=== PATIENT | female | born 1985 | race Caucasian/White ===

== ENCOUNTER 2021-07-06 22:14 | Inpatient (IN) | payer MEDICAID, SELFPAY ==
[2021-07-06] VITALS (17 sets, daily range): BP systolic 106–155; BP diastolic 67–77; PULSE 74–88; RESP 13–25; TEMP 36.3; O2SAT 96–99
[2021-07-06] MEDS: INSULIN REGULAR IN 0.9 % NACL 100 UNIT/100 ML BAG IV (21:40)
--- NOTE | 2021-07-06 23:02 | W.PM.HP.N ---
Date of service: 07/06/21 Time of Service: 23:02 Assessment and Plan Assessment and plan (1) Diabetic ketoacidosis associated with type 1 diabetes mellitus: Status: Acute Assessment and plan: . DKA is largely resolved. Her bicarb is up to 20 ion gap is closing. She is written for some clear liquid she will continue on the D5 containing IV fluid and insulin infusion per the [place] protocol. Every hour blood checks via her. Dexcom. We will recheck electrolytes in the a.m.(5 1/2 hrs). We will give her clear liquids overnight. (2) Pyelonephritis: Status: Acute Assessment and plan: Unusual presentation for upper tract infection. Her urine is not growing out greater than 100,000 colonies only 10-100,000 colonies of E. coli. Her blood culture shows gram-negative rods on the Gram stain. She is afebrile and maintaining a good blood pressure as well as a good urine output. A repeat CT scan is warranted to check for the phlegmon formation in the upper poles of both kidneys. At this point she does not have a drainable area. Dr. Rodarte from urology at [facility] reviewed her films. She does not have a large postvoid residual. (3) Type 1 diabetes mellitus: Status: Acute Assessment and plan: She has been a type I diabetic since age 5. She is followed by endocrinology at [facility]. She is normally on an insulin pump. Insulin pump has been removed and she is getting IV insulin per [place] protocol, currently at 4 units/h. Continue to check her sugar hourly. History of Present Illness History of Present Illness Chief Complaint: DKA/sepsis Narrative: This is a 35-year-old female transferred from [facility] for treatment of diabetic ketoacidosis in the setting of sepsis with a urinary tract source. She presented to [facility] on 07/05/2021. She states she has been sick for about 4 days. She works as a preschool substitute teacher. She developed fever and chills and a headache with some lower back pain and abdominal cramping. She is type I diabetic she noted she could smell ketones moderate breath. Her glucose levels have been running in the 200-300 range. She called her multimedia designer at [facility] and they gave her instructions to increase her insulin. At [facility] she was started on an insulin infusion. Her urinalysis showed 5-10 white cells and 3-5 red cells but only had a few bacteria. There are many epithelial cells. There were 4+ ketones but negative glucose negative nitrate and negative leukocyte esterase. The culture grew out 10-100,000 colony-forming units of E. coli. The blood cultures showed gram-negative rods on Gram stain molecular testing showed it to be E. coli. She was treated empirically with Unasyn in the insulin infusion. Her anion gap appears to be closing, her most recent bicarb is 20, she is now on D5 normal saline with 20 mEq of potassium at 100 cc/h. She is overall clinically improved. [facility] has no ICU beds available and could not provide an insulin infusion showed transfer was made after discussion with Dr. Hays. Review of Systems Narrative: She generally feels well. She is not chest pain or shortness of breath. She has no abdominal pain. She has no current nausea. She vomited once about 24 hours ago after having some clear liquid. Her last bowel movement was earlier today. She is not having any diarrhea. She has some vague fact discomfort that is intermittent but does not have true CVA tenderness. She has not had fever or chills since admission. [facility] Active Problem List (Updated 07/06/21 @ 23:16 by Arsh Jackson MD) Diabetic ketoacidosis associated with type 1 diabetes mellitus (Acute) Pyelonephritis (Acute) Type 1 diabetes mellitus (Acute) Medical History (Updated 07/06/21 @ 23:16 by Arsh Jackson MD) Acne Anxiety Dehiscence of section wound, (~2009) Depression Hirsutism Irregular menses Lateral epicondylitis Retinopathy Surgical History (Updated 07/06/21 @ 23:16 by Arsh Jackson MD) Previous section x3 Social History (Updated 07/06/21 @ 23:17 by Arsh Jackson MD) Smoking/Tobacco Use Status: Former Tobacco Use tobacco type: cigarettes Quit Date: 08/03/17 Pack-years: 14 Smoking risk assessment performed?: Yes Alcohol Intake: current Alcohol Intake frequency: 0-2 drinks per day Household members: spouse and children Number of Children: 3 Meds Allergies and Home Medications Allergies Allergy/AdvReac Type Severity Reaction Status Date / Time acetaminophen [From Ultracet] AdvReac seizures Verified 07/06/21 23:26 tramadol [From Ultracet] AdvReac seizures Verified 07/06/21 23:26 Home Medications Medication Instructions Recorded Confirmed Type albuterol sulfate [ProAir HFA] INHALATION 07/06/21 History blood-glucose meter,continuous 07/06/21 07/06/21 History [Dexcom G[employer]] gabapentin 300 mg PO TID 07/06/21 07/06/21 History insulin aspart U-100 [Novolog 07/06/21 History U-100 Insulin aspart] insulin glargine [Lantus U-100 SUBCUT 07/06/21 History Insulin] lidocaine [Lidoderm] 1 patch TOPICAL DAILY 07/06/21 07/06/21 History spironolactone 07/06/21 History tretinoin applic TOPICAL 07/06/21 History Exam Narrative Exam Narrative: On exam she is pleasant and alert in no apparent distress. She is fully cooperative and coherent. She has no respiratory difficulty or labored breathing. Her lung exam is completely clear on the right and left. Heart sounds are clear and no murmur is detected. Exam of the costovertebral area reveals no tenderness to percussion on the right or the left. She moves freely without evidence of discomfort. The abdominal exam is overall soft and no tenderness elicited to palpation in all 4 quadrants. No masses are appreciated. A postvoid residual done at bedside showed essentially 0 residual urine after 350 cc voids. The lower extremities show good perfusion and no evidence of edema. She has no obvious skin lesions. Results Imaging Chest x-ray: report reviewed (Chest x-ray from our [facility] showed no abnormality) CT scan - pelvis: report reviewed ([facility] showed a distended bladder and bilateral phlegmon in the upper poles of both kidneys. There were no abscess or drainable areas.) Labs Labs: Labs from [facility] at about 5:30 PM shows sodium 130 potassium 3.9 chloride 99 bicarb 28 BUN 11 creatinine 0.9 blood sugar 175 ketones 4.9 magnesium 1.3 but has since been corrected, urinalysis showed 5-10 white cells 3-5 red cells few bacteria and many epithelial cells 4+ ketones negative glucose nitrates negative leukocyte esterase negative; white blood cell count 20.9 thousand hemoglobin 14.3 hematocrit 42.7 platelets 2 98,000 with 92 segs no bands 2 lymphs; hemoglobin A1c is 7.5%; venous blood gases show pH 7.34 Last Vital Signs Temp 36.3 C L 07/06/21 21:51 Pulse 79 07/06/21 22:31 Resp 13 07/06/21 22:40 BP 106/67 07/06/21 22:31 Pulse Ox 98 07/06/21 22:40 PAWSS Pt Consumed Any Amount of Alcohol Within the Last 30 days OR had positive JESSE Upon Admission: No
[2021-07-06] MEDS: AMPICILLIN/SULBACTAM 3 GM in Normal Saline 100 ML IVPB (23:44)
[2021-07-06] MEDS: POTASSIUM CHLORIDE/D5-0.9%NACL 1,000 ML 100 MEQ IV (23:45)
[2021-07-07] VITALS (46 sets, daily range): BP systolic 95–124; BP diastolic 62–85; PULSE 69–102; RESP 11–27; TEMP 36–37.9; O2SAT 93–100
[2021-07-07] MEDS: Normal Saline Flush 10 ML SYR ×2 (00:12→08:27)
[2021-07-07 00:53] LABS: Anion Gap 9.8 mmol/L (3-11); BUN 11 mg/dL (7-18); CO2 21.2 mmol/L (21.0-32.0); CREATININE 0.9 mg/dL (0.55-1.02); Calcium 7.8 mg/dL (8.5-10.1); Chloride 102 mmol/L (98-107); Glucose 190 mg/dL (74-106); Potassium 3.4 mmol/L (3.5-5.1); Sodium 133 mmol/L (136-145)
[2021-07-07] MEDS: AMPICILLIN/SULBACTAM 3 GM in Normal Saline 100 ML IVPB (05:42)
[2021-07-07 05:44] LABS: Abs Immature Grans 0.12 10^3/uL (0.0-0.06); Absolute Eosinophil Count 0.03 10^3/uL (0.0-0.7); Absolute Lymphocyte Count 0.66 10^3/uL (1.2-3.4); Absolute Neutrophil Count 9.38 10^3/uL (1.2-6.7); Basophils % 0.3; Eosinophils % 0.3; HCT 33.7 % (36.0-46.0); HGB 11.3 g/dL (11.2-15.7); Lymphocytes % 5.8; MCH 30.1 pg (27.0-33.0); MCHC 33.5 % (32.0-36.0); MCV 89.9 fL (80-95); MPV 9.8 fL (8.0-11.0); Monocytes % 10.7; Neutrophils % 81.9; Nucleated RBC 0 %; Platelet Count 239 10^3/uL (130-400); RBC 3.75 10^6/uL (3.93-5.22); RDW 12.6 % (11.7-14.6); WBC 11.45 10^3/uL (4.4-10.8)
[2021-07-07 05:47] LABS: Absolute Basophil Count 0.03 10^3/uL (0.0-0.2); Absolute Monocyte Count 1.23 10^3/uL (0.1-0.8)
[2021-07-07 05:58] LABS: ALT 39 U/L (14-59); AST 57 U/L (15-37); Albumin 2.1 g/dL (3.4-5.0); Alkaline Phosphatase 121 U/L (46-116); Anion Gap 10.7 mmol/L (3-11); BUN 9 mg/dL (7-18); Bilirubin, Total 0.4 mg/dL (0.2-1.0); CO2 21.3 mmol/L (21.0-32.0); CREATININE 0.8 mg/dL (0.55-1.02); Calcium 7.8 mg/dL (8.5-10.1); Chloride 105 mmol/L (98-107); Magnesium 1.8 mg/dL (1.8-2.4); Potassium 3.3 mmol/L (3.5-5.1); Sodium 137 mmol/L (136-145)
[2021-07-07 06:02] LABS: Glucose 67 mg/dL (74-106)
[2021-07-07] MEDS: POTASSIUM CHLORIDE/0.9% NACL 1,000 ML 100 MEQ IV ×2 (06:45→16:28)
[2021-07-07] MEDS: Insulin Aspart 300 UNITS/3 ML PEN SC ×6 (07:53→23:24)
[2021-07-07] MEDS: Insulin Glargine 300 UNITS/3 ML PEN 25 UNITS SC (07:54)
[2021-07-07] MEDS: Enoxaparin 40 MG/0.4 ML SYR SC (07:55)
--- NOTE | 2021-07-07 08:15 | PGE_ITS ---
Date of Service Date of service: 07/07/21 Time of Service: 11:48 Assessment and Plan Assessment and plan (1) Sepsis: Status: Acute Assessment and plan: Due to B pyelonephritis with a relatively clean UA. Does have evidence of bacteriuria (E. Coli, pansensitive) and bacteremia (E. Coli and enterobacter, sensitivities are pending). Blood cultures repeated this am. Switch antibiotics to levofloxacin. Obtain echo. Obtain urology consult. May require repeat imaging. (2) Diabetic ketoacidosis associated with type 1 diabetes mellitus: Status: Resolved Assessment and plan: Triggered by sepsis. Transitioned to basal bolus insulin. Will contact [facility] endocrinology for recommendations as to when to switch back to the insulin pump. The patient has all her supplies with her in order to be able to do that. (3) Pyelonephritis: Status: Acute Assessment and plan: Agree that to have B pyelonephritis with no leucocyte esterase or nitrites on UA without evidence of obstruction is unusual. Consult urology as above. (4) Bacteremia: Status: Acute Assessment and plan: As above. (5) Type 1 diabetes mellitus: Status: Acute Assessment and plan: A1C of 8.1. Patient of [facility] endocrine. Will consult for recommendations as to when to resume the pump. We are not using dexcom in the hospital - needs formal AC/HS checks. *Tylenol interferes with dexcom reading. (6) Hypokalemia: Status: Acute Assessment and plan: Replete, recheck now at noon, and also check mag. (7) DVT prophylaxis: Status: Acute Assessment and plan: SC lovenox (8) Discharge planning issues: Status: Acute Assessment and plan: Full code Will keep in ICU this afternoon to ensure that DKA does not return with initiation of a diet. Subjective Subjective Interval history since last seen: Feels a bit better. Reports back pain that moves from between shouldblades to lower back. Toradol helps. States she can take tylenol, but has been avoiding it because it interferes with her dexcom read. She states that she is told that, when not on the pump, she is to use 35 units of lantus, 1 unit:16 g CHO, 1 unit: 60 points (lowered to 50 points since she has been sick). Pump is not currently hooked up. Off of insulin gtt and transitioned to basal bolus insulin. Never had urinary or GI sx - only symptoms have been fevers, chills, and back pain. Never had a hx of bacteremia in the past. [facility] called with blood culture results: both E. Coli and enterobacter. Sensitivities are pending. Urine C&S is growing delcid-sensitive E. coli. 0640: BG 67. Got [place] juice - BG 74. 136 at 7:30. Got 2 units of short acting + got lantus (25 units). Had a small breakfast. Exam Narrative Exam Narrative: General: Very pleasant female who does not appear to be to feeling well, A&Ox3 HEENT: EOMI, dry MM Heart: RRR, no m/r/g Lungs: CTAB Abdomen: soft, nontender, nondistended Extremities: no edema BLE's Objective Last Vital Signs Temp 37.3 C 07/07/21 00:30 Pulse 80 07/07/21 02:01 Resp 19 07/07/21 03:00 BP 109/74 07/07/21 02:01 Pulse Ox 97 07/07/21 03:00 Laboratory Results - last 24 hr 07/07/21 07/07/21 07/07/21 00:35 05:30 05:30 WBC 11.45 H RBC 3.75 L Hgb 11.3 Hct 33.7 L MCV 89.9 MCH 30.1 MCHC 33.5 RDW 12.6 Plt Count 239 MPV 9.8 Immature Gran % 1.0 Neutrophils % 81.9 Lymphocytes % 5.8 Monocytes % 10.7 Eosinophils % 0.3 Basophils % 0.3 Nucleated RBC % 0 Absolute Neutrophils 9.38 H Absolute Lymphocytes 0.66 L Absolute Monocytes 1.23 H Absolute Eosinophils 0.03 Absolute Basophils 0.03 Sodium 133 L 137 Potassium 3.4 L 3.3 L Chloride 102 105 Carbon Dioxide 21.2 21.3 Anion Gap 9.8 10.7 BUN 11 9 Creatinine 0.9 0.8 Estimated GFR/1.73 m2 >= 60.00 >= 60.00 Glucose 190 H 67 L D Calcium 7.8 L 7.8 L Magnesium 1.8 Total Bilirubin 0.4 AST 57 H ALT 39 Alkaline Phosphatase 121 H Total Protein 6.0 L Albumin 2.1 L PAWSS Pt Consumed Any Amount of Alcohol Within the Last 30 days OR had positive JESSE Upon Admission: No
[2021-07-07] MEDS: Ketorolac 15 MG/ML VIAL IVP (08:25)
[2021-07-07 08:33] LABS: Hemoglobin A1C 8.1 % (<5.7)
[2021-07-07] MEDS: Potassium Chloride 20 MEQ TABCR 40 MEQ PO (08:37)
--- NOTE | 2021-07-07 08:44 | NUR.NOTE ---
Blood cultures are drawn by lab. tech.Nursing Note:
[2021-07-07 09:16] LABS: Procalcitonin 1.3 ng/mL
[2021-07-07 09:48] LABS: C-Reactive Protein 19.43 mg/dL (0.0-0.3)
--- NOTE | 2021-07-07 10:22 | PDOC.CMIN ---
- If Service Date Differs Date of service: 07/07/21 Time of Service: 10:22 Care Management Initial Assess REASON FOR HOSPITALIZATION:: DKA/ Sepsis PAST MEDICAL HISTORY/PAST SURGICAL HISTORY:: Active Problem List. Diabetic ketoacidosis associated with type 1 diabetes mellitus (Acute). Pyelonephritis (Acute). Type 1 diabetes mellitus (Acute). Medical History. Acne. Anxiety. Dehiscence of section wound, (~2009). Depression. Hirsutism. Irregular menses. Lateral epicondylitis. Retinopathy. Surgical History. Previous section. x3 PREVIOUS FUNCTIONAL STATUS/SOCIAL/FAMILY SUPPORTS:: Xi lives in [place] with her , Reid, and their three children, who are 16, 11 and 6. 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 She is independent at baseline. CURRENT FUNCTIONAL STATUS:: Xi was sitting up in her chair when CM met with her. She was pleasant and engaged in conversation. She stated that she usually has her type 1 diabetes very well controlled, so she is not sure what happened to make her so sick. She asked CM for a toothbrush, and activity book. CM brought these items as well as an adult coloring book, colored pencils and toothpaste. She was very appreciative. She reported that she is looking forward to returning home, as she isn't often away from her children. Per report, her repeat blood cultures are pending. She will have an echo and urology consult, likely tomorrow. CM will continue to follow. ADVANCE DIRECTIVES:: None on file. Has patient been provided with info about the portal/API?: Yes Did the patient sign up for the portal?: No CODE STATUS:: Full Code INSURANCE COVERAGE / FINANCIAL ISSUES:: [employer] CURRENT HOME/COMMUNITY SERVICES/EQUIPMENT:: No current services or equipment. PRIMARY CARE PHYSICIAN:: unknown POTENTIAL DISCHARGE NEEDS:: Follow up appointments. PATIENT/FAMILY EDUCATION NEEDS:: Review discharge instructions, discussion of self care needs including ask me three. ANTICIPATED BARRIERS TO DISCHARGE:: None identified at this time. TRANSPORTATION:: Via private vehicle by her . PLAN:: Anticipate Xi will return home when medically cleared by MD. Her will drive her home via private vehicle when ready. She will follow up with her PCP and discharge plan of care. CM will continue to follow.
[2021-07-07] MEDS: levoFLOXacin 750 MG/150 ML BAG 100 MG IVPB (10:52)
[2021-07-07] MEDS: Normal Saline Flush 10 ML SYR IVP ×2 (10:59→19:39)
--- NOTE | 2021-07-07 11:01 | NUR.NOTE ---
RN orders yogurt and tea for patient who is feeling much better.Nursing Note:
[2021-07-07 12:43] LABS: Anion Gap 10.7 mmol/L (3-11); BUN 11 mg/dL (7-18); CO2 20.3 mmol/L (21.0-32.0); CREATININE 0.9 mg/dL (0.55-1.02); Calcium 7.9 mg/dL (8.5-10.1); Chloride 101 mmol/L (98-107); Glucose 294 mg/dL (74-106); Potassium 4.5 mmol/L (3.5-5.1); Sodium 132 mmol/L (136-145)
[2021-07-07 12:55] LABS: Magnesium 1.9 mg/dL (1.8-2.4); PHOSPHORUS < 2.0 mg/dL (2.6-4.7)
[2021-07-07] MEDS: Insulin Glargine 300 UNITS/3 ML PEN 12 UNITS SC (16:27)
[2021-07-07] MEDS: Normal Saline 1,000 ML 125 ML IV (18:52)
[2021-07-07] MEDS: Gabapentin 300 MG CAP PO (19:40)
[2021-07-08 02:05] VITALS: BP 122/82; PULSE 82; RESP 16; TEMP 37.4; O2SAT 99
[2021-07-08] MEDS: Normal Saline 1,000 ML 125 ML IV (02:35)
[2021-07-08] MEDS: Ketorolac 15 MG/ML VIAL IVP ×2 (02:41→21:35)
--- NOTE | 2021-07-08 05:08 | NUR.NOTE ---
PT reports being sweatty. gown changed. offer of bedding change temp 35.7. Nursing Note:
[2021-07-08 06:28] VITALS: BP 120/87; PULSE 69; RESP 16; TEMP 37.3; O2SAT 97
[2021-07-08 06:48] LABS: Abs Immature Grans 0.18 10^3/uL (0.0-0.06); Absolute Basophil Count 0.04 10^3/uL (0.0-0.2); Absolute Eosinophil Count 0.08 10^3/uL (0.0-0.7); Absolute Lymphocyte Count 1.12 10^3/uL (1.2-3.4); Absolute Monocyte Count 1.08 10^3/uL (0.1-0.8); Basophils % 0.5; HCT 33.3 % (36.0-46.0); HGB 11.2 g/dL (11.2-15.7); Immature Grans % 2.3; Lymphocytes % 14.1; MCH 30.5 pg (27.0-33.0); MCHC 33.6 % (32.0-36.0); MCV 90.7 fL (80-95); MPV 9.8 fL (8.0-11.0); Monocytes % 13.6; Neutrophils % 68.5; Nucleated RBC 0 %; Platelet Count 276 10^3/uL (130-400); RBC 3.67 10^6/uL (3.93-5.22); RDW 13.1 % (11.7-14.6); RDW-SD 44.3 fL; WBC 7.96 10^3/uL (4.4-10.8)
[2021-07-08 06:49] LABS: Absolute Neutrophil Count 5.45 10^3/uL (1.2-6.7)
[2021-07-08 07:05] LABS: Anion Gap 9.1 mmol/L (3-11); BUN 7 mg/dL (7-18); C-Reactive Protein 11.83 mg/dL (0.0-0.3); CO2 20.9 mmol/L (21.0-32.0); CREATININE 0.7 mg/dL (0.55-1.02); Calcium 7.8 mg/dL (8.5-10.1); Chloride 107 mmol/L (98-107); Glucose 206 mg/dL (74-106); Magnesium 1.8 mg/dL (1.8-2.4); Potassium 4.4 mmol/L (3.5-5.1); Sodium 137 mmol/L (136-145)
[2021-07-08] MEDS: Gabapentin 300 MG CAP PO ×3 (08:00→21:01)
[2021-07-08] MEDS: Normal Saline Flush 10 ML SYR IVP ×4 (08:01→21:36)
[2021-07-08] MEDS: Enoxaparin 40 MG/0.4 ML SYR SC (08:01)
--- NOTE | 2021-07-08 08:13 | DI.US_ITS ---
APPROVED REPORT EXAM: Comprehensive 2D, Doppler, and color-flow Echocardiogram Patient Location: In-Patient Room/Bed: 225 Volleyball Player: Radha Riggs RDCS (AE) Indications: Bacteremia, Concern for endocarditis Other Information Study Quality: Good Conclusion Left Ventricle : The left ventricle is normal size. There is normal left ventricular wall thickness. The left ventricular systolic function is normal. The left ventricular ejection fraction is within th e normal range. There is normal LV segmental wall motion. The left ventricular diastolic function is normal. LVEF is 63%. Right Ventricle : The right ventricle is normal size. The right ventricular systolic function is norm al. The RVSP is 23.5 mmHg. Atria : The left atrium size is normal. The right atrium size is normal. Valves: There are no hemodynamically significant valvular lesions nor any evidence of vegetations. Great Vessels : The aortic root is normal in size. The ascending aorta is normal in size. Aortic arch is normal in caliber. IVC is normal in size and collapses >50% with inspiration. See remainder of study for further details. Wall motion Left Ventricle The left ventricle is normal size. The left ventricular systolic function is normal. The left ventric ular ejection fraction is within the normal range. There is normal left ventricular wall thickness. T here is normal LV segmental wall motion. The left ventricular diastolic function is normal. There is no ventricular septal defect visualized. LVEF is 63%. Right Ventricle The right ventricle is normal size. The right ventricular systolic function is normal. The RVSP is 23 .5 mmHg. Atria The left atrium size is normal. The right atrium size is normal. The interatrial septum is intact wit h no evidence for an atrial septal defect. Aortic Valve The aortic valve is normal in structure. Aortic valve is trileaflet. There is no aortic valvular sten osis. No aortic regurgitation is present. There is no aortic valvular vegetation. Mitral Valve The mitral valve is normal in structure. No evidence of mitral valve stenosis. Trace mitral regurgita tion. There is no evidence of mitral valve vegetations. Tricuspid Valve The tricuspid valve is normal in structure. There is no tricuspid valve stenosis. Trace tricuspid reg urgitation. There is no tricuspid valve vegetations. Pulmonic Valve The pulmonary valve is normal in structure. There is no pulmonic valvular stenosis. Trace pulmonic re gurgitation. There is no pulmonic valve vegetations. Great Vessels The aortic root is normal in size. The ascending aorta is normal in size. Aortic arch is normal in ca liber. IVC is normal in size and collapses >50% with inspiration. Pericardium There is no pericardial effusion. 2D Dimensions IVSD d PLAX 0.97 cm F: 0.6-1.0 LV Vol A2C d MOD 127.0 mL LVPW d PLAX 1.00 cm F: 0.6 - 1.0 LV Vol A4C d MOD 89.0 mL LVID d PLAX 4.46 cm F: 3.8 - 5.2 LA vol/ BSA A2C s A-L 25.4 mL/m2 LVDs 2.70 cm F: 2.2 - 3.5 LA vol/ BSA A4C s A-L 20.9 mL/m2 Ao Root d 2.63 cm F: 2.7 - 3.3 LA Vol/ BSA Biplane s A-L 23.8 mL/m2 RA Area A4C 9.58 cm2 LA Area A4C s MOD 15.02 cm2 RA Vol/ BSA A4C s A-L 13.0 mL/m2 LA Area A2C s MOD 17.11 cm2 Ao Asc Diam d 2.84 cm F: 2.3 - 3.1 LV EF A4C MOD 63.2 % LV EF Teichholz 69.2 % LV EF A2C MOD 63.5 % LVEF (Perdue's) 63.73 % F: 54 - 74 LV EF Biplane MOD 63.7 % LV Volume 84.23 mL F: 46 - 106 SV 69.41 mL LV Volume Index 46.02 mL/m2 F: 29 - 61 SV Index 37.95 mL/m2 LV Vol Biplane MOD 108.9 mL FS 38.65 % M-Mode TAPSE 2.05 cm (M/F) >1.7 LV Diastology MV E' medial 0.127 (>0.07 m/s) E/A Ratio 1.8 LV E/e MED 6.45 (<14) MV E Vmax 0.82 (0.4-1.3 m/s) MV E' lateral 0.174 (>0.1 m/s) MV A Vmax 0.45 (0.4-1.3 m/s) LV E/e LAT 4.70 (<14) MV E/A Ratio 1.76 MV E/E' medial 6.46 MV E/E' lateral 4.71 Aortic Valve LVOT Area 3.25 cm2 AoV Area Vmax 2.25 cm2 LVOT Vmax 0.98 m/s AoV Area/ BSA (Vmax) 1.23 cm2/m2 LVOT Mean Esa. 0.63 m/s VASHTI Mean Esa. 2.10 cm2 LVOT Peak Grad 3.8 mmHg VASHTI Mean Esa. Index 1.15 cm2/m2 LVOT Mean Grad 1.9 mmHg LVOT VTI 0.219 m LVOT Diam s 2.00 cm AoV Vmax 1.41 m/s Velocity Ratio 0.69 AoV Mean Esa. 0.97 m/s AoV Peak Grad 8.0 mmHg LVOT SV 71.37 mL AoV Mean Grad 4.2 mmHg AoV VTI 0.274 m AoV Area VTI 2.61 cm2 AoV Area/ BSA (VTI) 1.42 cm/m2 Mitral Valve MV DT 211 (160-240 msec) MV PHT 61 msec MV Area PHT 3.59 cm2 MV VTI 0.266 m MV VTI Annulus 0.292 m MV Area VTI 2.97 (4.0-6.0 cm2) Pulmonary Valve PV Vmax 0.81 (0.5-1.5 m/s) RVOT Peak Gr. 2.06 mmHg PV Peak Grad 2.6 mmHg RVOT Mean Gr. 1.05 mmHg PV Mean Grad 1.7 mmHg RVOT VTI 0.156 m PV VTI 0.181 m RVOT Vmax 0.72 m/s Tricuspid Valve TR Peak Grad 20.4 mmHg TR Vmax 2.26 m/s RA Pressure 3.00 mmHg RVSP (TR) 23.5 mmHg
[2021-07-08] MEDS: Insulin Glargine 300 UNITS/3 ML PEN 24 UNITS SC (09:06)
[2021-07-08] MEDS: Insulin Aspart 300 UNITS/3 ML PEN SC ×8 (09:06→21:38)
[2021-07-08] MEDS: levoFLOXacin 750 MG/150 ML BAG 100 MG IVPB (10:04)
--- NOTE | 2021-07-08 11:43 | UCONE_ITS ---
Date of service: 07/08/21 Time of Service: 11:44 Assessment and Plan Assessment and plan (1) Pyelonephritis: Status: Acute Assessment and plan: I agree with her Cayden's interpretation that there is nothing in the urinary tract that requires a drainage procedure at this time. I do not have access to her cultures from [facility] just yet. The cultures obtained on admission here are still pending. I would expect that she would improve with antibiotics alone. If she does not improve, repeat imaging should be done to decide if we need to place ureteral stent or percutaneous drain. I am not exactly sure why she developed this infection. 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 From her bladder ultrasound, it appears that she is able to empty her bladder reasonably well. I might speculate that her bladder sensation is compromised and that she does not sense the need to void until a large volume is present. If that is the case, timed voiding may be helpful in preventing future infections. History of Present Illness History of Present Illness Chief Complaint: Pyelonephritis Narrative: This is a 35-year-old woman who has a history of diabetes mellitus. She has had DKA previously and has had urinary tract infections previously, but has not done had DKA related to an infectious process for several years. She noticed that her blood sugars were becoming more more difficult to control. She was able to noticed that her breath had a ketone odor. She consulted with her construction quality control manager by phone and adjusted her insulin dosing. She then began having fevers and chills. She was brought to the emergency room at [facility]. She was reported to have E. coli both in the blood in the urine. She had some mild low back pain but no real flank pain. She was not really having any voiding symptoms such as dysuria, frequency, urgency or hematuria. A CT scan was obtained and there was no hydronephrosis or abscess formation, but there were changes consistent with bilateral pyelonephritis. There were no in tensive care unit beds available at [facility] or any of the tertiary care centers. She was transferred here. Since her arrival, she has had repeat blood cultures taken. She has been on the Levaquin and clinically she has improved. She has no history of kidney stones or previous urologic surgery. She has not had any recent instrumentation such as catheterization or cystoscopy. Review of Systems Narrative: No chills Diabetic retinopathy. No dysphasia Insulin dependant Diabetes Mellitus. No thyroid dysfunction No shortness of breath, cough or hemoptysis No chest pain or palpitations No nausea, vomiting, hepatitis, ulcers, jaundice, diarrhea or constipation No seizures or strokes No bleeding disorders or anemia No gout PFSH Active Problem List (Updated 07/07/21 @ 12:02 by Bettie Smith MD) Hypokalemia (Acute) Discharge planning issues (Acute) DVT prophylaxis (Acute) Bacteremia (Acute) Sepsis (Acute) Pyelonephritis (Acute) Type 1 diabetes mellitus (Acute) Medical History (Updated 07/07/21 @ 12:02 by Bettie Smith MD) Acne Anxiety Dehiscence of section wound, (~2009) Depression Hirsutism Irregular menses Lateral epicondylitis Retinopathy Surgical History (Updated 07/06/21 @ 23:16 by Arsh Jackson MD) Previous section x3 Social History (Updated 07/06/21 @ 23:17 by Arsh Jackson MD) Smoking/Tobacco Use Status: Former Tobacco Use tobacco type: cigarettes Quit Date: 08/03/17 Pack-years: 14 Smoking risk assessment performed?: Yes Alcohol Intake: current Alcohol Intake frequency: 0-2 drinks per day Household members: spouse and children Number of Children: 3 Exam Narrative Exam Narrative: She is in no current distress. She does not appear septic at this point Her vital signs are documented elsewhere in the chart Her chest wall motion is normal. She is not short of breath at rest. There is no CVA tenderness Her abdomen is soft with no guarding or rebound tenderness She is awake and alert I was able to review the noncontrast CT scan done at [facility]. I do not see hydronephrosis on either side. Her bladder was distended (but reportedly emptied weel on a post void bladder scan). No filling defects or diverticuli were seen in the bladder. There are some wedged shaped peripheral areas in the kidneys consistent with pyelonephritis, but I see no evidence of abscess formation. Results Last Vital Signs Temp 37.3 C 07/08/21 06:28 Pulse 69 07/08/21 06:28 Resp 16 07/08/21 06:28 BP 120/87 07/08/21 06:28 Pulse Ox 97 07/08/21 06:28 Labs Result diagrams: 07/08/21 06:24 07/08/21 06:24 Labs: Laboratory Results - last 24 hr 07/07/21 07/07/21 07/08/21 12:22 12:22 06:24 WBC RBC Hgb Hct MCV MCH MCHC RDW Plt Count MPV Immature Gran % Neutrophils % Lymphocytes % Monocytes % Eosinophils % Basophils % Nucleated RBC % Absolute Neutrophils Absolute Lymphocytes Absolute Monocytes Absolute Eosinophils Absolute Basophils Sodium 132 L 137 Potassium 4.5 D 4.4 Chloride 101 107 Carbon Dioxide 20.3 L 20.9 L Anion Gap 10.7 9.1 BUN 11 7 Creatinine 0.9 0.7 Estimated GFR/1.73 m2 >= 60.00 >= 60.00 Glucose 294 H D 206 H D Calcium 7.9 L 7.8 L Phosphorus < 2.0 L Magnesium 1.9 1.8 C-Reactive Protein 11.83 H 07/08/21 07/08/21 06:24 06:24 WBC 7.96 D RBC 3.67 L Hgb 11.2 Hct 33.3 L MCV 90.7 MCH 30.5 MCHC 33.6 RDW 13.1 Plt Count 276 MPV 9.8 Immature Gran % 2.3 Neutrophils % 68.5 Lymphocytes % 14.1 Monocytes % 13.6 Eosinophils % 1.0 Basophils % 0.5 Nucleated RBC % 0 Absolute Neutrophils 5.45 Absolute Lymphocytes 1.12 L Absolute Monocytes 1.08 H Absolute Eosinophils 0.08 Absolute Basophils 0.04 Sodium Potassium Chloride Carbon Dioxide Anion Gap BUN Creatinine Estimated GFR/1.73 m2 Glucose Calcium Phosphorus 2.0 L Magnesium C-Reactive Protein
--- NOTE | 2021-07-08 12:10 | PHACLINREV_ITS ---
Pharmacy Admission Review - Admission Clinical Review (Last Updated 07/06/21 @ 23:16 by Arsh Jackson MD) Hypokalemia (Acute) Discharge planning issues (Acute) DVT prophylaxis (Acute) Bacteremia (Acute) Sepsis (Acute) Pyelonephritis (Acute) Type 1 diabetes mellitus (Acute) tramadol [From Ultracet] Adverse Reaction (Verified 07/06/21 23:26) seizures Resuscitation Status Full Code Height 5 ft 6 in Weight 164.5 kg - Renal Dosing Renal Dosing: BUN 7 mg/dL (7-18) 07/08/21 06:24 Creatinine 0.7 mg/dL (0.55-1.02) 07/08/21 06:24 Medications needing adjustments: Reviewed (SCr: 0.7, CrCl~130.2mL/min. All medications dosed appropriately.) - Anticoagulation Anticoagulation: Hgb 11.2 g/dL (11.2-15.7) 07/08/21 06:24 Hct 33.3 % (36.0-46.0) L 07/08/21 06:24 Plt Count 276 10^3/uL (130-400) 07/08/21 06:24 Creatinine 0.7 mg/dL (0.55-1.02) 07/08/21 06:24 DVT Prophylaxis: Reviewed Medications: Enoxaparin (Enoxaparin 40mg SC Q24H ordered.) - Opiate Usage Evaluate Pain Scale/Pains Meds: N/A (No opiates this admission. Pain scale r atings of 0, 4, and 6.) - Relevant Labs Sodium 137 mmol/L (136-145) 07/08/21 06:24 Potassium 4.4 mmol/L (3.5-5.1) 07/08/21 06:24 Chloride 107 mmol/L (98-107) 07/08/21 06:24 Phosphorus 2.0 mg/dL (2.6-4.7) L 07/08/21 06:24 Magnesium 1.8 mg/dL (1.8-2.4) 07/08/21 06:24 C-Reactive Protein 11.83 mg/dL (0.0-0.3) H 07/08/21 06:24 Electrolytes, C-Reactive P, ESR: Reviewed (Phosphorus low, Phospha 250 Neutral QID ordered.) - DM Control DM Control: Glucose 206 mg/dL (74-106) H D 07/08/21 06:24 Hemoglobin A1c 8.1 % (<5.7) H 07/07/21 05:30 Finger Stick Blood Glucose 273 Finger Stick Blood Glucose 273 Finger Stick Blood Glucose 231 Finger Stick Blood Glucose 231 Finger Stick Blood Glucose 231 Finger Stick Blood Glucose 231 Finger Stick Blood Glucose 231 Insulin Dosing: Reviewed (Blood glucose elevated, insulin glargine 24 units AM, 12 units HS and sliding scale insulin aspart ordered.) - Heart Failure/WI EF%, KENAN's, B-Blockers, Diuretics: N/A - BP Control BP Control: Blood Pressure 120/87 Blood Pressure 122/82 If elevated: N/A (Blood pressure low this admission.) - Qtc Review If Elevated: N/A - IV to PO Switch IV Medications: Reviewed - Home Meds Relevent Home Meds Not ordered & why?: Spironolactone 100mg daily not ordered and Tretinoin 0.025% cream not ordered. - Current meds Current Medication Order Review: Reviewed - Comments Comments/Follow Ups: Continue to monitor blood glucose, phosporus, vitals, labs and medication changes. Antibiotic Activity - Pharmacy Antibiotic Review Pharmacy Antibiotic Activity: Reviewed, no change (Levofloxacin 750mg Q24H continued, labs pending.)
[2021-07-08 13:13] VITALS: TEMP 37.1
[2021-07-08 13:52] VITALS: BP 119/80; PULSE 86; RESP 18; O2SAT 100
--- NOTE | 2021-07-08 14:43 | W.PM.PROGNOT ---
Date of Service Date of service: 07/08/21 Time of Service: 14:43 Assessment and Plan Assessment and plan (1) Sepsis: Status: Acute Assessment and plan: Due to B pyelonephritis with a relatively clean UA. Does have evidence of bacteriuria (E. Coli, pansensitive) and bacteremia (E. Coli and enterobacter, sensitivities are pending as of this am still, we are calling [facility] for updates right now). Blood cultures 07/07/21 done at our facility show NGTD. Continue levofloxacin. No evidence of vegetations on echo. Urology consult today: no operative intervention indicated. No further imaging indicated at this time. (2) Diabetic ketoacidosis associated with type 1 diabetes mellitus: Status: Resolved Assessment and plan: Triggered by sepsis. Per [facility] [place] [place] endocrine recommendations, will continue basal bolus insulin and will not restart the pump yet. Continue lantus 24 units in am, 12 units QPM, SSI 1:25, adjust carb counting ratio to 1 unit: 5 grams CHO. (3) Pyelonephritis: Status: Acute Assessment and plan: As above (4) Bacteremia: Status: Acute Assessment and plan: As above. (5) Type 1 diabetes mellitus: Status: Acute Assessment and plan: A1C of 8.1. Patient of [facility] [place] [place] endocrine. Will need close follow up on d/c to ensure that insulin needs are met and DKA does not re-develop. We are not using dexcom in the hospital - needs formal AC/HS checks. *Tylenol interferes with dexcom reading. (6) Hypokalemia: Status: Resolved Assessment and plan: Recheck in am (7) DVT prophylaxis: Status: Acute Assessment and plan: SC lovenox (8) Discharge planning issues: Status: Acute Assessment and plan: Full code Continues to require hospitalization. Transferred out of the ICU yesterday, 07/07/21. Subjective Subjective Interval history since last seen: Ms Nelson continues to have back pain. She also reports night sweats. Denies dizziness, chest pain, shorntess of breath, nausea. Endorses Diarrhea that started since antibiotics were initiated. Diarrhea is watery. We discussed yeast tender's recommendations yesterday. Ms Nelson would really like to return home as soon as possible - we discussed it possibly being tomorrow. Exam Narrative Exam Narrative: General: Very pleasant female who looks better today than yesterday, A&Ox3 HEENT: EOMI, MMM Heart: RRR, no m/r/g Lungs: CTAB Abdomen: soft, nontender, nondistended Extremities: no edema BLE's Objective Last Vital Signs Temp 37.1 C 07/08/21 13:13 Pulse 86 07/08/21 13:52 Resp 18 07/08/21 13:52 BP 119/80 07/08/21 13:52 Pulse Ox 100 07/08/21 13:52 Laboratory Results - last 24 hr 07/08/21 07/08/21 07/08/21 06:24 06:24 06:24 WBC 7.96 D RBC 3.67 L Hgb 11.2 Hct 33.3 L MCV 90.7 MCH 30.5 MCHC 33.6 RDW 13.1 Plt Count 276 MPV 9.8 Immature Gran % 2.3 Neutrophils % 68.5 Lymphocytes % 14.1 Monocytes % 13.6 Eosinophils % 1.0 Basophils % 0.5 Nucleated RBC % 0 Absolute Neutrophils 5.45 Absolute Lymphocytes 1.12 L Absolute Monocytes 1.08 H Absolute Eosinophils 0.08 Absolute Basophils 0.04 Sodium 137 Potassium 4.4 Chloride 107 Carbon Dioxide 20.9 L Anion Gap 9.1 BUN 7 Creatinine 0.7 Estimated GFR/1.73 m2 >= 60.00 Glucose 206 H D Calcium 7.8 L Phosphorus 2.0 L Magnesium 1.8 C-Reactive Protein 11.83 H Echo: Left Ventricle : The left ventricle is normal size. There is normal left ventricular wall thickness. The left ventricular systolic function is normal. The left ventricular ejection fraction is within the normal range. There is normal LV segmental wall motion. The left ventricular diastolic function is normal. LVEF is 63%. Right Ventricle : The right ventricle is normal size. The right ventricular systolic function is normal. The RVSP is 23.5 mmHg. Atria : The left atrium size is normal. The right atrium size is normal. Valves: There are no hemodynamically significant valvular lesions nor any evidence of vegetations. Great Vessels : The aortic root is normal in size. The ascending aorta is normal in size. Aortic arch is normal in caliber. IVC is normal in size and collapses >50% with inspiration. PAWSS Pt Consumed Any Amount of Alcohol Within the Last 30 days OR had positive JESSE Upon Admission: No
[2021-07-08 15:42] VITALS: BP 118/82; PULSE 82; RESP 16; TEMP 37.1; O2SAT 100
--- NOTE | 2021-07-08 17:29 | CMPROGNOTE_ITS ---
- If Service Date Differs Date of service: 07/08/21 Time of Service: 17:29 Care Management Progress Note S/O: Xi was sitting up in her chair when CM met with her. She reported that she had a difficult day today, as she is missing her and children, and they are missing her. She stated that she is able to facetime with her , which is helpful to see his face. She reported that per MD, her cultures are pending, which will help determine her antibiotic course. She had an echo today, which was also pending. She is hoping to be able to return home soon. CM will continue to follow. A: Xi is a 35 year old female admitted to [facility] on 07/06/21 with DKA/Sepsis. P: Anticipate Xi will return home when medically cleared by . Her will drive her home via private vehicle. She will follow up with her PCP and discharge plan of care. CM will continue to follow.
[2021-07-08 19:43] VITALS: BP 119/82; PULSE 82; RESP 16; TEMP 36.8; O2SAT 100
[2021-07-08 19:46] LABS: C Diff PCR Negative (Negative)
[2021-07-08] MEDS: Insulin Glargine 300 UNITS/3 ML PEN 12 UNITS SC (21:37)
[2021-07-09 00:30] VITALS: BP 118/70; PULSE 82; RESP 16; TEMP 36.8; O2SAT 100
[2021-07-09 03:00] VITALS: BP 115/78; RESP 16; TEMP 36.8; O2SAT 100
[2021-07-09 07:18] LABS: Abs Immature Grans 0.28 10^3/uL (0.0-0.06); HCT 32.2 % (36.0-46.0); HGB 10.9 g/dL (11.2-15.7); MCH 30.5 pg (27.0-33.0); MCHC 33.9 % (32.0-36.0); MCV 90.2 fL (80-95); MPV 9.6 fL (8.0-11.0); Nucleated RBC 0 %; Platelet Count 328 10^3/uL (130-400); RBC 3.57 10^6/uL (3.93-5.22); RDW 12.9 % (11.7-14.6); RDW-SD 42.8 fL; WBC 7.75 10^3/uL (4.4-10.8)
[2021-07-09 07:46] LABS: Procalcitonin 0.2 ng/mL
[2021-07-09 07:51] LABS: Anion Gap 9.8 mmol/L (3-11); BUN 7 mg/dL (7-18); C-Reactive Protein 8.58 mg/dL (0.0-0.3); CO2 24.2 mmol/L (21.0-32.0); CREATININE 0.6 mg/dL (0.55-1.02); Calcium 8.1 mg/dL (8.5-10.1); Chloride 107 mmol/L (98-107); Glucose 120 mg/dL (74-106); Magnesium 1.7 mg/dL (1.8-2.4); Potassium 3.7 mmol/L (3.5-5.1); Sodium 141 mmol/L (136-145)
[2021-07-09 07:52] VITALS: BP 121/86; PULSE 70; RESP 16; TEMP 36.5; O2SAT 97
[2021-07-09 07:57] LABS: Absolute Eosinophil Count 0.47 10^3/uL (0.0-0.7); Absolute Lymphocyte Count 1.32 10^3/uL (1.2-3.4); Absolute Monocyte Count 0.78 10^3/uL (0.1-0.8); Absolute Neutrophil Count 5.12 10^3/uL (1.2-6.7); Bands % 3; Metamyelocytes % 1
[2021-07-09 07:58] LABS: Diff Comment Manual Differential; RBC Morphology Normal
[2021-07-09] MEDS: Insulin Aspart 300 UNITS/3 ML PEN SC ×3 (08:48→12:45)
[2021-07-09] MEDS: Enoxaparin 40 MG/0.4 ML SYR SC (08:49)
[2021-07-09] MEDS: Normal Saline Flush 10 ML SYR IVP (08:50)
[2021-07-09] MEDS: Gabapentin 300 MG CAP PO ×2 (08:50→13:15)
[2021-07-09] MEDS: levoFLOXacin 750 MG/150 ML BAG 100 MG IVPB (09:32)
[2021-07-09] MEDS: Normal Saline 500 ML 100 ML IV (09:32)
[2021-07-09] MEDS: Insulin Glargine 300 UNITS/3 ML PEN 24 UNITS SC (09:38)
--- NOTE | 2021-07-09 10:32 | W.PM.DS.N ---
Date of service: 07/09/21 Time of Service: 10:32 DS: Diagnosis Discharge Diagnosis (1) Escherichia coli sepsis: Status: Acute (2) Pyelonephritis: Status: Acute (3) Diabetic ketoacidosis associated with type 1 diabetes mellitus: Status: Resolved (4) Type 1 diabetes mellitus: Status: Acute (5) Hypokalemia: Status: Resolved (6) Hypomagnesemia: Status: Acute (7) Hypophosphatemia: Status: Acute (8) COVID-19 ruled out by laboratory testing: Status: Ruled-out Discharge Plan Disposition Patient Disposition: HOME Condition: Improving Discharge Details Reason For Visit: DKA/Sepsis Admit Date/Time: 07/06/21 22:14 Admit Provider: Arsh Jackson Attending Provider: Arsh Jackson Hospital Course Hospital Course: Ms Nelson is a 35 year old female with PMHx of IDDM1, on insulin pump, as well as h/o depression, anxiety, and hirsutism, who was transferred to [facility] ICU from [facility] ED for DKA in setting of GNR bacteremia and bilateral pyelonephritis without evidence of obstruction or nephrolithiasis. The patient was treated with insulin infusion, IVF, and systemic antibiotics. Blood cultures done at [facility] grew delcid-sensitive E. Coli, as did the urine C&S. (Blood cx PCR was reported as Enterobacterales, E. Coli, where Enterobacterales referred to the order in scientific classification rather than an enterobacter, as we have found out). The patient was evaluated by urology (Dr Luque) who agreed that there was no evidence of obstruction on the CT abdomen/pelvis done at [facility] and that no surgical intervention would be required. The patient was initiated on unasyn at [facility] but transitioned to levofloxacin for better soft tissue penetration at our facility and demonstrated steady improvement of her symptoms. Her blood cultures done on 07/07/21 at [facility] were negative. Her echo did not show any evidence of cardiac involvement. She was transitioned off of insulin gtt on 07/07/21 and switched to basal bolus insulin, at which point she was transferred out of the ICU. [facility] [place] helped manage her basal bolus insulin while in-house. She is to resume her insulin pump tomorrow and is being given instructions on how to manage her sliding scale and carb counting ratio on discharge. The patient has gotten her last dose of long acting insulin this morning (24 units of lantus) and has novolog for injections at home until her pump can be restarted. The patient's back pain due to her pyelonephritis was treated with toradol and heat while at our facility. She is instructed to use prn ibuprofen at home. She has developed antibiotic-induced diarrhea here. She tested negative for C.Diff. We are recommending yogurt twice daily as well as probiotics on discharge. She may use prn loperamide. The patient is medically stable for discharge home today with 7 more days of levofloxacin. Care for patient as well as completion of her discharge summary on day of discharge took 45 minutes. Home Meds and New Rx's Prescriptions: New insulin aspart U-100 [Novolog Flexpen U-100 Insulin] 100 unit/mL (3 mL) Insulin Pen 1 - 20 unit subcut 0800,1200,1700 Qty: 0 RF: 0 insulin aspart U-100 [Novolog Flexpen U-100 Insulin] 100 unit/mL (3 mL) Insulin Pen See Rx Instructions .ROUTE .COMPLEX Qty: 0 RF: 0 loperamide 2 mg capsule 2 mg PO QID PRN (Reason: diarrhea) Qty: 20 RF: 0 levofloxacin 750 mg tablet 750 mg PO DAILY Qty: 7 RF: 0 Lactobacillus acidophilus 1 billion cell capsule 1,000 mmu cells PO DAILY Qty: 30 RF: 0 ibuprofen 200 mg tablet 400 - 600 mg PO Q6H PRNQty: 30 RF: 0 Continued gabapentin 300 mg Tablet 300 mg PO TID RF: 0 insulin glargine 100 unit/mL Cartridge 0 unit SUBCUT DAILY RF: 0 (DME) Dexcom G4 Grain Oilseed Or Pasture Grower Misc MISCELLANEOUS RF: 0 tretinoin 0.025 % Cream 1 applic TOPICAL DAILY RF: 0 spironolactone 100 mg Tablet 100 mg PO BID Qty: 0 RF: 0 insulin aspart U-100 [Novolog U-100 Insulin aspart] 100 unit/mL Solution 50 - 60 unit subcut DAILY Qty: 0 RF: 0 Discharge Instructions Instructions: Levofloxacin (By mouth), Diabetic Ketoacidosis (DC), Kidney Infection (DC), Sepsis (DC) Additional Instructions: Finish levofloxacin (antibiotic) as prescribed. Return to the hospital with any fever, worsening of your symptoms, chest pain, shortness of breath, or bleeding. Today, follow a 1 unit:50 corrective scale and resume 1:60 corrective scale tomorrow. Today, follow a 1 unit: 10 g CHO carb counting ration; return to 1:16 grams CHO tomorrow. Resume your insulin pump tomorrow morning. Follow up with [facility] [place] for any questions on managing your insulin pump during your acute illness. Stand Alone Forms: Nursing Discharge Form Referrals: [place],[facility] [place] - Activity:: Activity as Tolerated Equipment/Supplies:: No Equipment Needed Diet:: Carb Counting Discharge Orders Discharge Orders: Discharge Order (Routine); Ordered 07/09/21 Ordered By: Bettie Smith DS: Summary Time Spent with Patient providing and/or coordinating discharge services: Greater than 30 minutes Status at Discharge Functional status at discharge: independent ambulation Overall status at discharge: patient is progressing back to baseline Mental Status: mental status grossly normal Speech and Movement: speech and movement normal Mood: congruent mood Affect: normal affect Exam Narrative Exam Narrative: General: Very pleasant female who looks well, A&Ox3 HEENT: EOMI, MMM Heart: RRR, no m/r/g Lungs: CTAB Abdomen: soft, nontender, nondistended Extremities: no edema BLE's Psych Mental Status: mental status grossly normal Speech and Movement: speech and movement normal Mood: congruent mood Affect: normal affect DS: Data Vitals/I&O Vitals and I&O: Vital Signs Temperature 36.5 C 07/09/21 07:52 Temperature Source Tympanic 07/09/21 07:52 Pulse 70 07/09/21 07:52 Pulse Rhythm Regular 07/09/21 03:45 Pulse 79 07/07/21 20:02 Respiratory Rate 16 07/09/21 07:52 Respiratory Effort Non-Labored 07/09/21 03:45 Respiratory Depth Normal 07/09/21 03:45 Respiratory Pattern Normal 07/09/21 03:45 Blood Pressure 121/86 07/09/21 07:52 Blood Pressure Mean 80 07/07/21 23:21 Blood Pressure Position Sitting 07/07/21 17:20 Pulse Oximetry 97 07/09/21 07:52 Oxygen Delivery Method Room Air 07/09/21 07:52 Oxygen Flow Rate 0 07/09/21 07:52 Pain Level 0 07/09/21 08:50 Comment 07/09/21 08:50 Intake & Output 07/08/21 07/08/21 07/09/21 11:59 23:59 11:59 Intake Total 2485.833 / 3694.583 1208.75 / 3694.583 790 / 790 Output Total 1725 / 3225 1500 / 3225 1100 / 1100 Balance 760.833 / 469.583 -291.25 / 469.583 -310 / -310 Weight 74.616 kg 74.5 kg Intake: IV 1945.833 / 2124.583 178.75 / 2124.583 Oral 540 / 1570 1030 / 1570 790 / 790 Output: Urine 1725 / 3225 1500 / 3225 1100 / 1100 Other: Urine Color Yellow Yellow Yellow Urine Appearance Cloudy Clear Clear Urine Odor Normal None Normal Comment Void x1 in the toilet. Per pt. report, void x1 in the toilet. Hat emptied by LEARNING AND DEVELOPMENT ASSISTANT; urine amount never documented by LEARNING AND DEVELOPMENT ASSISTANT. Stool Size Small Stool Characteristics Liquid Voiding Methods Toilet Toilet Toilet Data Completed and Pending Completed studies during hospitalization [Text1]: Echo: Left Ventricle : The left ventricle is normal size. There is normal left ventricular wall thickness. The left ventricular systolic function is normal. The left ventricular ejection fraction is within the normal range. There is normal LV segmental wall motion. The left ventricular diastolic function is normal. LVEF is 63%. Right Ventricle : The right ventricle is normal size. The right ventricular systolic function is normal. The RVSP is 23.5 mmHg. Atria : The left atrium size is normal. The right atrium size is normal. Valves: There are no hemodynamically significant valvular lesions nor any evidence of vegetations. Great Vessels : The aortic root is normal in size. The ascending aorta is normal in size. Aortic arch is normal in caliber. IVC is normal in size and collapses >50% with inspiration. Labs on day of discharge: Labs from last 24 hours 07/09/21 07/09/21 07/09/21 06:33 06:33 06:33 WBC 7.75 RBC 3.57 L Hgb 10.9 L Hct 32.2 L MCV 90.2 MCH 30.5 MCHC 33.9 RDW 12.9 Plt Count 328 MPV 9.6 Immature Gran % See Differential Neutrophils % 63.0 Band Neutrophils % 3 Lymphocytes % 17.0 Monocytes % 10.0 Eosinophils % 6.0 Basophils % 0.0 Metamyelocytes % 1 Nucleated RBC % 0 Absolute Neutrophils 5.12 Absolute Lymphocytes 1.32 Absolute Monocytes 0.78 Absolute Eosinophils 0.47 Absolute Basophils 0.00 RBC Morphology Normal Sodium 141 Potassium 3.7 Chloride 107 Carbon Dioxide 24.2 Anion Gap 9.8 BUN 7 Creatinine 0.6 Estimated GFR/1.73 m2 >= 60.00 Glucose 120 H D Calcium 8.1 L Magnesium 1.7 L C-Reactive Protein 8.58 H Procalcitonin 0.2 Stl C.difficile Tox PCR 07/08/21 16:33 WBC RBC Hgb Hct MCV MCH MCHC RDW Plt Count MPV Immature Gran % Neutrophils % Band Neutrophils % Lymphocytes % Monocytes % Eosinophils % Basophils % Metamyelocytes % Nucleated RBC % Absolute Neutrophils Absolute Lymphocytes Absolute Monocytes Absolute Eosinophils Absolute Basophils RBC Morphology Sodium Potassium Chloride Carbon Dioxide Anion Gap BUN Creatinine Estimated GFR/1.73 m2 Glucose Calcium Magnesium C-Reactive Protein Procalcitonin Stl C.difficile Tox PCR Negative Preliminary micro results at discharge 07/07/21 09:00 Blood Culture - Preliminary Blood NO GROWTH 24 HOURS 07/07/21 09:00 Blood Culture - Preliminary Blood NO GROWTH 24 HOURS PFS Active Problem List (Updated 07/09/21 @ 10:35 by Bettie Smith MD) Escherichia coli sepsis (Acute) Hypophosphatemia (Acute) Hypomagnesemia (Acute) Discharge planning issues (Acute) DVT prophylaxis (Acute) Bacteremia (Acute) Sepsis (Acute) Pyelonephritis (Acute) Type 1 diabetes mellitus (Acute) Medical History (Updated 07/09/21 @ 10:35 by Bettie Smith MD) Acne Anxiety Dehiscence of section wound, (~2009) Depression Hirsutism Irregular menses Lateral epicondylitis Retinopathy Surgical History (Updated 07/06/21 @ 23:16 by Arsh Jackson MD) Previous section x3 Social History (Updated 07/06/21 @ 23:17 by Arsh Jackson MD) Smoking/Tobacco Use Status: Former Tobacco Use tobacco type: cigarettes Quit Date: 08/03/17 Pack-years: 14 Smoking risk assessment performed?: Yes Alcohol Intake: current Alcohol Intake frequency: 0-2 drinks per day Household members: spouse and children Number of Children: 3
[2021-07-09 11:07] VITALS: BP 122/83; PULSE 72; RESP 17; TEMP 36.7; O2SAT 99
[2021-07-09] MEDS: MAGNESIUM SULFATE 2 GM/50 ML BAG IVPB (11:29)
--- NOTE | 2021-07-09 18:10 | PDOC.CMDIS ---
- If Service Date Differs Date of service: 07/09/21 Time of Service: 18:10 LACE Index Scoring Tool - Questions: Length of Stay (in days): 3 Acuity (Admit via E.D.?): Yes Comorbidities: Diabetes w/o Complication E.D. Visits: 0 - Answers: Total Score: 7 Risk of Readmission: Low Risk Care Management Discharge Reason for Hospitalization: DKA/ Sepsis Discharge Plan: Xi returned home today with no new services. Her drove her home via private vehicle. She will follow up with her PCP and discharge plan of care. She is very happy to be going home. Patient/Family Education Needs: Review discharge instructions regarding activity levels and medications, discussion of self care needs including ask me three.
== END 2021-07-09 13:43 | disposition home or self-care (01) | DRG 871 ==
LOC: ICU 22:35 → MS 07-08 02:23
PROVIDERS: Internal Medicine; Admitting Provider Family Medicine; Visit Provider Family Medicine
DX: A41.51 Sepsis due to Escherichia coli [E. coli] (principal); E10.10 Type 1 diabetes mellitus with ketoacidosis without coma; N10 Acute pyelonephritis; F41.9 Anxiety disorder, unspecified; F32.A Depression, unspecified; E10.319 Type 1 diabetes mellitus with unspecified diabetic retinopathy without macular edema; Z87.891 Personal history of nicotine dependence; E87.6 Hypokalemia; E83.42 Hypomagnesemia; E83.39 Other disorders of phosphorus metabolism; Z20.822 Contact with and (suspected) exposure to COVID-19; Z96.41 Presence of insulin pump (external) (internal)
CPT/HCPCS: 36410; 36415; 80048; 80053; 84145; 87040; 87493; J1650; 83036; 83735; 84100; 85025; 86140; 93306; 99223; 99232; 99233; 99239; J0295; J1885; J1956; J3490

== ENCOUNTER 2022-08-21 11:26 | Emergency (ER) | payer MEDICAID, SELFPAY ==
[2022-08-21] VITALS (74 sets, daily range): BP systolic 85–131; BP diastolic 38–101; PULSE 69–109; RESP 10–33; TEMP 36.5–36.8; O2SAT 95–100
--- NOTE | 2022-08-21 11:15 | RT.EKG_ITS ---
APPROVED REPORT Exam: Resting ECG Reason for Exam: sob Patient Location: E HR:106 bpm ECG Measurements Heart Rate 106 AXIS ND 171 P 53 QRSd 73 QRS 104 QT 351 T 16 QTc 467 Conclusion Sinus tachycardia...rate> 99 Multiple ventricular premature complexes...V complexes w/ short R-R intervls Right atrial enlargement...P>0.25mV 2 lds or<-0.24mV aVR/aVL Repol abnrm suggests ischemia, diffuse leads...ST-T neg, ant/lat/inf sinus tachycardia, normal axis, normal interals, poor baseline
[2022-08-21 11:44] LABS: BE (Venous) -6 mmol/L (-2-3); HCO3 (Venous) 19 mmol/L (23-28); O2 Sat (Venous) 56 %; TCO2 (Venous) 17 mmol/L (24-29); pCO2 (Venous) 30 mmHg (41-51); pH (Venous) 7.41 (7.31-7.41); pO2 (Venous) 27 mmHg
--- NOTE | 2022-08-21 11:49 | ED.GENADUL_ITS ---
Discharge Plan Disposition Patient Disposition: Home Condition: Improving Discharge Details Chief Complaint: Diabetes Clinical Impression: Nausea & vomiting Primary Care Provider: Unknown,Unknown ED Provider: Hernando Lane Home Meds and New Rx's Prescriptions: No Action gabapentin 300 mg Tablet 300 mg PO TID insulin glargine 100 unit/mL Cartridge 0 unit SUBCUT DAILY (DME) Dexcom G4 Medical Claims Assistant Misc MISCELLANEOUS tretinoin 0.025 % Cream 1 applic TOPICAL DAILY insulin aspart U-100 [Novolog FlexPen U-100 Insulin] 100 unit/mL (3 mL) Insulin Pen 1 - 20 unit subcut 0800,1200,1700 Qty: 0 0RF Rx Instructions: 1 unit: 10 grams CHO today, then go back to your usual coverage of 1 unit: 16 grams CHO insulin aspart U-100 [Novolog FlexPen U-100 Insulin] 100 unit/mL (3 mL) Insulin Pen See Rx Instructions .ROUTE .COMPLEX Qty: 0 0RF Rx Instructions: 1 unit: 50 pts >150 today, then 1 unit: 60 pts starting tomorrow Lactobacillus acidophilus 1 billion cell capsule 1,000 mmu cells PO DAILY Qty: 30 0RF ibuprofen 200 mg tablet 400 - 600 mg PO Q6H PRNQty: 30 0RF spironolactone 100 mg Tablet 100 mg PO BID Qty: 0 0RF Rx Instructions: Resume in 2 days insulin aspart U-100 [Novolog U-100 Insulin aspart] 100 unit/mL Solution 50 - 60 unit subcut DAILY Qty: 0 0RF Rx Instructions: Resume insulin pump tomorrow morning! 50 to 60 unit sq via [employer] 630G pump Discharge Instructions Instructions: Acute Nausea and Vomiting (ED) Additional Instructions: Please follow-up with your primary care physician. Please return to the emergency department for any worsening symptoms. Medical Decision Making 36-year-old female history of diabetes, currently on insulin pump, presents with persistently high blood sugar overnight into the 300s, arrives nauseous retching, hyperventilating on arrival. Patient is alert oriented following commands able to ambulate to bed. Afebrile, tachycardic. Moist mucous membranes making good tears and saliva, good skin turgor and plump AC veins bilaterally. After obtaining IV access and allowing patient to rest in bed she is breathing much more comfortably no longer tachypneic. Given her history of diabetes must consider DKA versus dehydration versus viral enteritis versus elec trolyte abnormality versus UTI lower suspicion for bowel obstruction cholecystitis or appendicitis given history and physical. Will obtain labs VBG fluid hydration antiemetics close reassessment disposition pending results. 15: 41 patient resting comfortably no longer vomiting, tolerating ice chips. Blood sugar downtrending now in the 270s. Anion gap is closing. Will observe and recheck fingerstick as long as she is maintaining p.o. intake with normalizing blood sugar patient to be discharged home she will follow-up closely with her well puller head at [facility]. 19: 22 patient resting comfortably no further vomiting. Hemodynamically stable; given home care instructions and return precautions HPI General Date/Time Provider Initiated Documentation: 08/21/22 11:28 . HPI Narrative: 36-year-old female history of diabetes, presents with persistently high blood sugar overnight in the 300s now associate with nausea and vomiting, patient hyperventilating and retching in waiting room on arrival. Patient has an insulin pump in place that has been functioning properly. Related Data Home Medications Medication Instructions Recorded Confirmed blood-glucose meter,continuous 07/06/21 08/21/22 (Dexcom G4 Medical Claims Assistant) gabapentin 300 mg tablet 300 mg PO TID 07/06/21 08/21/22 insulin glargine 100 unit/mL 0 unit subcut DAILY 07/06/21 08/21/22 subcutaneous cartridge tretinoin 0.025 % topical cream 1 applic topical DAILY 07/06/21 08/21/22 Lactobacillus acidophilus 1 1,000 mmu cells PO DAILY #30 caps 07/09/21 08/21/22 billion cell capsule ibuprofen 200 mg tablet 400 - 600 mg PO Q6H PRN #30 tabs 07/09/21 08/21/22 insulin aspart U-100 100 unit/mL 1 - 20 unit (0.01 - 0.2 mL) subcut 07/09/21 08/21/22 (3 mL) subcutaneous pen (Novolog 0800,1200,1700 #0 mL FlexPen U-100 Insulin aspart) insulin aspart U-100 100 unit/mL See Rx Instructions .Route 07/09/21 08/21/22 (3 mL) subcutaneous pen (Novolog .COMPLEX #0 mL FlexPen U-100 Insulin aspart) insulin aspart U-100 100 unit/mL 50 - 60 unit (0.5 - 0.6 mL) subcut 07/09/21 08/21/22 subcutaneous solution (Novolog DAILY #0 mL U-100 Insulin aspart) spironolactone 100 mg tablet 100 mg PO BID #0 tabs 07/09/21 08/21/22 Previous Rx's Medication Instructions Recorded Lactobacillus acidophilus 1 1,000 mmu cells PO DAILY #30 caps 07/09/21 billion cell capsule ibuprofen 200 mg tablet 400 - 600 mg PO Q6H PRN #30 tabs 07/09/21 insulin aspart U-100 100 unit/mL 1 - 20 unit (0.01 - 0.2 mL) subcut 07/09/21 (3 mL) subcutaneous pen (Novolog 0800,1200,1700 #0 mL FlexPen U-100 Insulin aspart) insulin aspart U-100 100 unit/mL See Rx Instructions .Route 07/09/21 (3 mL) subcutaneous pen (Novolog .COMPLEX #0 mL FlexPen U-100 Insulin aspart) insulin aspart U-100 100 unit/mL 50 - 60 unit (0.5 - 0.6 mL) subcut 07/09/21 subcutaneous solution (Novolog DAILY #0 mL U-100 Insulin aspart) spironolactone 100 mg tablet 100 mg PO BID #0 tabs 07/09/21 Allergies Allergy/AdvReac Type Severity Reaction Status Date / Time tramadol [From Ultracet] AdvReac seizures Verified 08/21/22 11:56 General Stated Complaint: Diabetes MALLY: 2 Review of Systems Narrative: Review of Systems Constitutional: negative Eyes: negative ENT: negative Cardiovascular: negative Respiratory: negative Gastrointestinal: Nausea, vomiting : negative Musculoskeletal: negative Skin: negative Neurologic: negative Psych: negative PFSH All Active Problems (Updated 08/21/22 @ 19:[address] MD) Nausea & vomiting (Acute) Escherichia coli sepsis (Acute) Hypophosphatemia (Acute) Hypomagnesemia (Acute) Discharge planning issues (Acute) DVT prophylaxis (Acute) Bacteremia (Acute) Sepsis (Acute) Pyelonephritis (Acute) Type 1 diabetes mellitus (Acute) Medical History (Updated 08/21/22 @ 19:[address] MD) Acne Anxiety Dehiscence of section wound, (~2009) Depression Hirsutism Irregular menses Lateral epicondylitis Retinopathy Surgical History (Updated 07/06/21 @ 23:16 by Arsh Jackson MD) Previous section x3 Social History (Updated 07/06/21 @ 23:17 by Arsh Jackson MD) Smoking/Tobacco Use Status: Former Tobacco Use tobacco type: cigarettes Quit Date: 08/03/07 Pack-years: 14 Smoking risk assessment performed?: Yes Alcohol Intake: current Alcohol Intake frequency: 0-2 drinks per day Alcohol type: beer Drug use: Daily Substance use type: marijuana Household members: spouse and children Number of Children: 3 Do you feel safe at home: Yes Do you feel safe in your relationship?: Yes Exam Narrative Exam Narrative: Physical Examination General: alert, awake, cooperative, anxious appearing, retching HEENT: normocephalic, atraumatic; PERRL, EOM intact, conjunctiva normal; no nasal discharge; moist mucous membranes, oral and pharyngeal mucosa normal, tolerating secretions Neck: supple, trachea midline; full ROM Chest: normal to inspection Respiratory: normal respiratory effort, speaking in full sentences, clear to auscultation, no wheezing, rales or rhonchi Cardiac: Tachycardia, regular rhythm, S1S2 intact, no murmurs rubs or gallops GI: abdomen soft, non-tender, non-distended; no palpable mass or he patosplenomegaly Skin: no lesions, rashes or trauma appreciated Neuro: AAOx3, normal speech, moving all extremities Psych: Tearful, anxious, hyperventilating Course Vital Signs Vital signs: Vital Signs Temperature 36.5 C 08/21/22 11:28 Pulse 103 H 08/21/22 11:28 Respiratory Rate 30 H 08/21/22 11:28 Blood Pressure 100/58 L 08/21/22 11:28 Pulse Oximetry 98 08/21/22 11:28 Temperature 36.5 C 08/21/22 11:28 Temperature Source Temporal Artery Scan 08/21/22 11:28 Pulse 103 H 08/21/22 11:28 Respiratory Rate 30 H 08/21/22 11:28 Blood Pressure 100/58 L 08/21/22 11:28 Blood Pressure Position Sitting 08/21/22 11:28 Pulse Oximetry 98 08/21/22 11:28 Oxygen Delivery Method Room Air 08/21/22 11:28 Oxygen Flow Rate 0 08/21/22 11:28 Pain Level 0 08/21/22 11:28 Lab/Test Results Lab/Test Results: Laboratory Tests Range/Units 08/21/22 11:35 VBG pH (7.31-7.41) 7.41 VBG pCO2 (41-51) mmHg 30 L VBG pO2 mmHg 27 VBG HCO3 (23-28) mmol/L 19 L VBG Total CO2 (24-29) mmol/L 17 L VBG O2 Saturation % 56 VBG Base Excess (-2-3) mmol/L -6 L
[2022-08-21] MEDS: Ondansetron 4 MG/2 ML VIAL IVP (11:51)
[2022-08-21 12:00] LABS: Abs Immature Grans 0.09 10^3/uL (0.0-0.06); Absolute Basophil Count 0.09 10^3/uL (0.0-0.2); Absolute Eosinophil Count 0.03 10^3/uL (0.0-0.7); Absolute Lymphocyte Count 1.38 10^3/uL (1.2-3.4); Absolute Monocyte Count 0.68 10^3/uL (0.1-0.8); Absolute Neutrophil Count 14.82 10^3/uL (1.2-6.7); Basophils % 0.5; Eosinophils % 0.2; HCT 44.9 % (36.0-46.0); HGB 14.7 g/dL (11.2-15.7); Immature Grans % 0.5; Lymphocytes % 8.1; MCH 30.3 pg (27.0-33.0); MCHC 32.7 % (32.0-36.0); MCV 93 fL (80-95); MPV 11.1 fL (8.0-11.0); Neutrophils % 86.7; Platelet Count 249 10^3/uL (130-400); RBC 4.85 10^6/uL (3.93-5.22); RDW 12.4 % (11.7-14.6); RDW-SD 42.5 fL; WBC 17.09 10^3/uL (4.4-10.8)
[2022-08-21] MEDS: Lactated Ringers 1,000 ML 2000 ML IV (12:08)
[2022-08-21 12:14] LABS: HCG Quant, Pregnancy 1 mIU/mL (1-3)
[2022-08-21 12:22] LABS: ALT 13 U/L (14-59); AST 12 U/L (15-37); Albumin 4.7 g/dL (3.4-5.0); Alkaline Phosphatase 83 U/L (46-116); Anion Gap 17.2 mmol/L (3-11); BUN 17 mg/dL (7-18); CO2 19.8 mmol/L (21.0-32.0); CREATININE 1.2 mg/dL (0.55-1.02); Calcium 10.2 mg/dL (8.5-10.1); Chloride 100 mmol/L (98-107); Estimated GFR 60.16 (mL/min/1.73m2); Glucose 346 mg/dL (74-106); Lipase 33 U/L (73-393); Magnesium 1.8 mg/dL (1.8-2.4); Potassium 4.5 mmol/L (3.5-5.1); Sodium 137 mmol/L (136-145); TSH (W/Ref FT4) 1.61 uIU/mL (0.36-3.74); Total Protein 8.3 g/dL (6.4-8.2)
[2022-08-21 12:23] LABS: ETHANOL BLOOD < 3.0 mg/dL (<10)
[2022-08-21 12:35] LABS: Influenza A PCR Negative (Negative); Influenza B PCR Negative (Negative); RSV PCR Negative (Negative)
[2022-08-21 12:40] LABS: COVID-19 PCR Positive (Negative); Source Nasopharynx
--- NOTE | 2022-08-21 13:15 | DI.RAD_ITS ---
Exam(s) XR PORTABLE CHEST AP EXAM: XR PORTABLE CHEST AP CLINICAL HISTORY: dka concern for infectious trigger. TECHNIQUE: 2D digital imaging was performed. COMPARISON: CR XR CHEST 1 VW from 07/05/2021 FINDINGS: Single AP portable view. Heart size is upper normal. The mediastinum is not widened. Lungs are clear. No infiltrates nor obvious pleural effusions. IMPRESSION: No acute pulmonary findings on this single AP portable view of the chest. DATA REPOSITORY: RADIATION DOSE DELIVERED:
[2022-08-21 13:40] LABS: Bilirubin Negative (Negative); Blood Trace-intact (Negative); Clarity Clear (Clear); Glucose 500 mg/dL (Negative); Ketones >=160 mg/dL (Negative); Leukocyte Esterase Negative (Negative); Nitrite Negative (Negative); Urobilinogen 0.2 EU/dL (Up TO 0.2)
[2022-08-21] MEDS: Lactated Ringers 1,000 ML 150 ML IV (13:57)
[2022-08-21 13:59] LABS: Bacteria Rare HPF (Negative); C & S Indicated? No; Casts Negative LPF (Negative); Crystals Negative HPF (Negative); Epithelial Cells Few HPF (Negative); Mucus Negative (Negative); WBC 0-2 HPF (0-5)
[2022-08-21] MEDS: Mylanta Suspension 30 ML CUP PO (14:02)
[2022-08-21] MEDS: Famotidine 20 MG/2 ML VIAL IVP (14:02)
[2022-08-21] MEDS: Lidocaine 2% Viscous 1 ML Solution 15 ML PO (14:03)
[2022-08-21 14:09] LABS: *AMPHETAMINES SCREEN URINE Negative (Negative); *BARBITURATES SCREEN URINE Negative (Negative); *BENZODIAZEPINES SCREEN URINE Negative (Negative); Cannabinoids THC Positive (Negative); Cocaine Screen,Urine Negative (Negative); METHADONE URINE SCREEN Negative (Negative); OPIATES URINE SCREEN Negative (Negative)
[2022-08-21 14:10] LABS: Tricyclic Antidepressants Negative (Negative)
[2022-08-21 14:11] LABS: Anion Gap 12.1 mmol/L (3-11); BUN 15 mg/dL (7-18); CO2 20.9 mmol/L (21.0-32.0); CREATININE 0.8 mg/dL (0.55-1.02); Calcium 8.9 mg/dL (8.5-10.1); Chloride 104 mmol/L (98-107); Estimated GFR 97.87 (mL/min/1.73m2); Glucose 294 mg/dL (74-106); Potassium 4.3 mmol/L (3.5-5.1); Sodium 137 mmol/L (136-145)
[2022-08-21] MEDS: Metoclopramide 10 MG/2 ML VIAL IM (17:09)
[2022-08-21] MEDS: LORazepam 2 MG/ML VIAL 0.5 MG IVP (17:10)
--- NOTE | 2022-08-21 17:56 | NUR.NOTE ---
Nursing Note: Patient states she is concerned about becoming septic from her kidneys again, states her low back hurts, last time she had a kidney infection it did not show anything in the urinalysis and was only conformed by a CT per patient. provider made aware of concern.
== END 2022-08-21 19:59 | disposition home or self-care (01) ==
PROVIDERS: Emergency Provider Emergency Medicine
DX: R11.2 Nausea with vomiting, unspecified (principal); U07.1 COVID-19; E10.65 Type 1 diabetes mellitus with hyperglycemia; R00.0 Tachycardia, unspecified; R06.4 Hyperventilation; Z79.4 Long term (current) use of insulin
CPT/HCPCS: 36415; 36416; 80048; 80053; 80307; 82805; 82962; 83690; 87637; 93005; 96361; 96372; 96374; 96375; 99284; 71045; 80320; 81003; 81015; 83735; 84443; 84702; 85025; 93010; 99285; J2060; J2405; J2765

== ENCOUNTER 2023-01-29 09:34 | Emergency (ER) | payer MEDICAID, SELFPAY ==
[2023-01-29] VITALS (10 sets, daily range): BP systolic 109–118; BP diastolic 79–84; PULSE 80–104; RESP 9–21; TEMP 37.1–37.2; O2SAT 95–100
--- OUTSIDE RECORDS SUMMARY | 2023-01-29 10:02 | XMS_ITS | Continuity of Care Document ---
Author Name Unknown Organization [facility] Address [address] [place] [address] Care Team Providers Care Yarn Tester Name Role Phone Marcellus Plascencia Primary Care Physician [id number] Date(s): 08/13/22 - 08/13/22 [facility] [address] [place] [address] Discharge Disposition: Home or Self Care Attending Physician: Lindsay Zelaya APRN Admitting Physician: Lindsay Zelaya APRN Referring Physician: Lindsay Zelaya APRN Allergies, Adverse Reactions, Alerts Substance Reaction Severity Status acetaminophen-tramadol Fit Unknown Activ e Immunizations Given and Recorded Vaccine Date Status Refusal Reason influenza virus vaccine, inactivated 07/30/22 Give n influenza virus vaccine, inactivated 05/21/16 Bna rded influenza virus vaccine, inactivated 04/27/12 Nba rded influenza virus vaccine, inactivated 06/13/11 Nba rded influenza virus vaccine, inactivated 05/03/10 Nba rded influenza virus vaccine, inactivated 08/03/00 Nba rded influenza virus vaccine, live 05/29/21 Recorded influenza virus vaccine, live 05/25/20 Recorded influenza virus vaccine, live 05/24/19 Recorded influenza virus vaccine, live 05/12/18 Recorded influenza virus vaccine, live 05/06/17 Recorded SARS-CoV-2 (COVID-19) mRNA-1273 vaccine 11/20/20 R ecorded SARS-CoV-2 (COVID-19) mRNA-1273 vaccine 10/23/20 R ecorded tetanus/diphth/pertuss (Tdap) adult/adol 09/14/14 Recorded tetanus/diphth/pertuss (Tdap) adult/adol 04/24/14 Recorded Novel [id number], all formulation 05/18/09 Recorded rubella virus vaccine 08/03/00 Recorded Medications Bactrim DS 800 mg-160 mg oral tablet 1 tab, Oral, BID, # 28 tab, 0 Refill(s), Pharmacy: [id number] Start Date: 06/18/22 Stop Date: 07/02/22 Status: Ordered cyclobenzaprine 5 mg oral tablet 7.5 mg = 1.5 tab, Oral, BID, take 1.5 tabs BID. This replaces the 7.5 mg dosage that not avaialabe and not covered if available., # 30 tab, 0 Refill(s), Pharmacy: [id number] Start Date: 05/09/22 Stop Date: 05/19/22 Status: Ordered gabapentin 300 mg oral capsule 270 EA, TAKE ONE CAPSULE BY MOUTH THREE TIMES A DAY, 0 Refill(s) Start Date: 05/09/22 Status: Ordered ibuprofen 800 mg oral tablet 800 mg = 1 tab, Oral, every 8 hr, # 30 tab, 1 Refill(s), Pharmacy: [id number] Start Date: 05/09/22 Status: Ordered magnesium oxide 250 mg oral tablet 500 mg = 2 tab, Oral, Daily, # 28 tab, 0 Refill(s), Pharmacy: [id number] Start Date: 06/20/22 Stop Date: 07/04/22 Status: Ordered NovoLOG See Instructions, via pump, 0 Refill(s) Start Date: 05/09/22 Status: Ordered Paxlovid 150 mg-100 mg (300 mg-100 mg Dose) oral tablet 3 tab, Oral, BID, Take two 150 mg nirmatrelvir tablets with one 100 mg ritonavir tablet at the sametime as indicated on the blister cards. Provide Fact Sheet for Patients/Caregivers, # 30 tab, 0 Refill(s), Pharmacy: [id number] Start Date: 07/20/22 Stop Date: 07/25/22 Status: Ordered spironolactone 100 mg oral tablet 180 EA, TAKE ONE TABLET BY MOUTH TWICE A DAY, 0 Refill(s) Start Date: 05/09/22 Status: Ordered Problem List Condition Confirmation Course Effective Dates Status Health St [facility] Informant Diabetes type I Confirmed Active Results Laboratory List Name Date Comprehensive Metabolic Panel 08/13/22 Hemoglobin A1c 08/13/22 Lipid Panel 08/13/22 Thyroid Stimulating Hormone 08/13/22 Most recent to oldest [Reference Range]: 1 BUN [7-18 mg/dL] 6 mg/dL *LOW* (08/13/22 5:04 PM) Cholesterol Total [50-200 mg/dL] 203 mg/ dL *HI* (08/13/22 5:04 PM) LDL [0-130 mg/dL] 105 mg/dL (08/13/22 5:04 PM) Glucose Level [74-106 mg/dL] 136 mg/dL *HI* (08/13/22 5:04 PM) Potassium Level [3.5-5.1 mmol/L] 4.2 mmo l/L (08/13/22 5:04 PM) HDL [40-60 mg/dL] 92 mg/dL *HI* (08/13/22 5:04 PM) AST [15-37 unit/L] 21 unit/L (08/13/22 5:04 PM) ALT [14-59 unit/L] 18 unit/L (08/13/22 5:04 PM) Sodium Level [136-145 mmol/L] 135 mmol/L *LOW* (08/13/22 5:04 PM) Triglycerides [0-150 mg/dL] 30 mg/dL (08/13/22 5:04 PM) Calcium Level [8.5-10.1 mg/dL] 9.5 mg/dL (08/13/22 5:04 PM) Albumin Level [3.4-5.0 g/dL] 4.3 g/dL (08/13/22 5:04 PM) Protein Total [6.4-8.2 g/dL] 7.6 g/dL (08/13/22 5:04 PM) Bilirubin Total [0.2-1.0 mg/dL] 0.7 mg/d L (08/13/22 5:04 PM) Alk Phos [46-146 unit/L] 64 unit/L (08/13/22 5:04 PM) CO2 [21-32 mmol/L] 28 mmol/L (08/13/22 5:04 PM) TSH [0.358-3.740 mcIntlUnit/mL] 3.226 mc IntlUnit/mL (08/13/22 5:04 PM) eGFR Non-AA [>=60] 102 (08/13/22 5:04 PM) eGFR AA [>=60] 102 (08/13/22 5:04 PM) Hemoglobin A1c [4.0-6.0 %] 7.1 % *HI* (08/13/22 5:04 PM) Chloride Level [98-107 mmol/L] 100 mmol/ L (08/13/22 5:04 PM) Creatinine Level [0.55-1.02 mg/dL] 0.77 mg/dL (08/13/22 5:04 PM) Social History Social History Type Response Smoking Status Smoking tobacco use: Former tobacco user;Never entered on: 05/09/22 Sex Female Patient Care team information Personnel Name: Marcellus Plascencia DO Address: Address: [facility] [id number] [place] [address]
--- OUTSIDE RECORDS SUMMARY | 2023-01-29 10:02 | XMS_ITS | Continuity of Care Document ---
Author Name Unknown Organization [facility] Address [address] [place] [address] Care Team Providers Care Supervisor Communications And Signals Name Role Phone Marcellus Plascencia Primary Care Physician Encounter [facility] Date(s): 06/18/22 - 06/18/22 [facility] [address] [place] [address] Encounter Diagnosis Urinary frequency(Discharge Diagnosis) - 06/18/22 Complicated urinary tract infection(Discharge Diagnosis) - 06/18/22 Discharge Disposition: Home or Self Care Attending Physician: Dolores Roldan NP Admitting Physician: Dolores Roldan WEB SUPPORT ENGINEER Allergies, Adverse Reactions, Alerts Substance Reaction Severity Status acetaminophen-tramadol Fit Unknown Activ e Immunizations Given and Recorded Vaccine Date Status Refusal Reason influenza virus vaccine, live 05/29/21 Recorded influenza virus vaccine, live 05/25/20 Recorded influenza virus vaccine, live 05/24/19 Recorded influenza virus vaccine, live 05/12/18 Recorded influenza virus vaccine, live 05/06/17 Recorded SARS-CoV-2 (COVID-19) mRNA-1273 vaccine 11/20/20 R ecorded SARS-CoV-2 (COVID-19) mRNA-1273 vaccine 10/23/20 R ecorded influenza virus vaccine, inactivated 05/21/16 Nba rded influenza virus vaccine, inactivated 04/27/12 Nba rded influenza virus vaccine, inactivated 06/13/11 Nba rded influenza virus vaccine, inactivated 05/03/10 Nba rded influenza virus vaccine, inactivated 08/03/00 Nba rded tetanus/diphth/pertuss (Tdap) adult/adol 09/14/14 Recorded tetanus/diphth/pertuss (Tdap) adult/adol 04/24/14 Recorded Novel [id number], all formulation 05/18/09 Recorded rubella virus vaccine 08/03/00 Recorded Medications Bactrim DS 800 mg-160 mg oral tablet 1 tab, Oral, BID, # 28 tab, 0 Refill(s), Pharmacy: [facility] #[id number] Start Date: 06/18/22 Stop Date: 07/02/22 Status: Ordered cyclobenzaprine 5 mg oral tablet 7.5 mg = 1.5 tab, Oral, BID, take 1.5 tabs BID. This replaces the 7.5 mg dosage that not avaialabe and not covered if available., # 30 tab, 0 Refill(s), Pharmacy: [facility] #105 Start Date: 05/09/22 Stop Date: 05/19/22 Status: Ordered gabapentin 300 mg oral capsule 270 EA, TAKE ONE CAPSULE BY MOUTH THREE TIMES A DAY, 0 Refill(s) Start Date: 05/09/22 Status: Ordered ibuprofen 800 mg oral tablet 800 mg = 1 tab, Oral, every 8 hr, # 30 tab, 1 Refill(s), Pharmacy: [facility] #105 Start Date: 05/09/22 Status: Ordered NovoLOG See Instructions, via pump, 0 Refill(s) Start Date: 05/09/22 Status: Ordered spironolactone 100 mg oral tablet 180 EA, TAKE ONE TABLET BY MOUTH TWICE A DAY, 0 Refill(s) Start Date: 05/09/22 Status: Ordered Problem List Condition Confirmation Course Effective Dates Status Health St [facility] Informant Diabetes type I Confirmed Active Results Laboratory List Name Date Comprehensive Metabolic Panel (CMP) 06/03 01/22 Magnesium Level 06/18/22 Urinalysis Dipstick Only 06/18/22 Most recent to oldest [Reference Range]: 1 BUN [7-18 mg/dL] 9 mg/dL (06/18/22 2:18 PM) UA Color Yellow (06/18/22 2:18 PM) Glucose Level [74-106 mg/dL] 109 mg/dL *HI* (06/18/22 2:18 PM) Potassium Level [3.5-5.1 mmol/L] 4.3 mmo l/L (06/18/22 2:18 PM) UA Urobilinogen Normal (06/18/22 2:18 PM) UA Bili [Negative] Negative (06/18/22 2:18 PM) UA Ketones Negative (06/18/22 2:18 PM) AST [15-37 unit/L] 17 unit/L (06/18/22 2:18 PM) ALT [14-59 unit/L] 24 unit/L (06/18/22 2:18 PM) Sodium Level [136-145 mmol/L] 138 mmol/L (06/18/22 2:18 PM) UA Leuk Est 2+ *ABN* (06/18/22 2:18 PM) UA Nitrite Negative (06/18/22:18 PM) UA Glucose [Negative] Negative (06/18/22:18 PM) Calcium Level [8.5-10.1 mg/dL] 9.3 mg/dL (06/18/22:18 PM) Albumin Level [3.4-5.0 g/dL] 4.2 g/dL (06/18/22:18 PM) Protein Total [6.4-8.2 g/dL] 7.2 g/dL (06/18/22 2:18 PM) UA Protein Negative (06/18/22: PM) Magnesium Level [1.8-2.4 mg/dL] 1.7 mg/d L *LOW* (06/18/22:18 PM) Bilirubin Total [0.2-1.0 mg/dL] 0.3 mg/d L (06/18/22 2:18 PM) Alk Phos [46-146 unit/L] 69 unit/L (06/18/22 2:18 PM) UA Blood 1+ *ABN* (06/18/22 2:18 PM) UA Spec Grav 1.020 *NA* (06/18/22:18 PM) CO2 [21-32 mmol/L] 29 mmol/L (06/18/22 2:18 PM) UA pH 6.0 *NA* (06/18/22 2:18 PM) eGFR Non-AA [>=60] 92 (06/18/22 2:18 PM) eGFR AA [>=60] 92 (06/18/22 2:18 PM) UA Appear Hazy *ABN* (06/18/22 2:18 PM) Chloride Level [98-107 mmol/L] 103 mmol/ L (06/18/22 2:18 PM) Creatinine Level [0.55-1.02 mg/dL] 0.84 mg/dL (06/18/22 2:18 PM) Social History Social History Type Response Smoking Status Smoking tobacco use: Former tobacco user;Never entered on: 05/09/22 Sex Female Patient Care team information Personnel Name: Marcellus Plascencia DO Address: Address: [place] [facility] [address]
--- OUTSIDE RECORDS SUMMARY | 2023-01-29 10:02 | XMS_ITS | Continuity of Care Document ---
Author Name Unknown Organization [facility] Address [address] [place] [address] Care Team Providers Care Associate Field Service Engineer Name Role Phone Marcellus Plascencia Primary Care Physician Encounter [facility] Date(s): 11/24/22 - 11/24/22 [facility] [address] [place] [address] Encounter Diagnosis Pain of right great toe(Discharge Diagnosis) - 11/24/22 Discharge Disposition: Home or Self Care Attending Physician: Dyllan Potter MD Admitting Physician: Dyllan Potter MD Allergies, Adverse Reactions, Alerts Substance Reaction Severity Status acetaminophen-tramadol Fit Unknown Activ e Immunizations Given and Recorded Vaccine Date Status Refusal Reason influenza virus vaccine, inactivated 07/30/22 Give n influenza virus vaccine, inactivated 05/21/16 Nba rded [...] Recorded tetanus/diphth/pertuss (Tdap) adult/adol 04/24/14 Recorded Novel [id number], all formulation 05/18/09 Recorded rubella virus vaccine 08/03/00 Recorded Medications cyclobenzaprine 5 mg oral tablet 7.5 mg = 1.5 tab, Oral, BID, take 1.5 tabs BID. This replaces the 7.5 mg dosage that not avaialabe and not covered if available., # 30 tab, 0 Refill(s), Pharmacy: [facility] #[id number] Start Date: 05/09/22 Stop Date: 05/19/22 Status: Ordered gabapentin 300 mg oral capsule 270 EA, TAKE ONE CAPSULE BY MOUTH THREE TIMES A DAY, 0 Refill(s) Start Date: 05/09/22 Status: Ordered ibuprofen 800 mg oral tablet 800 mg = 1 tab, Oral, every 8 hr, # 30 tab, 1 Refill(s), Pharmacy: [facility] #[id number] Start Date: 05/09/22 Status: Ordered magnesium oxide 250 mg oral tablet 500 mg = 2 tab, Oral, Daily, # 28 tab, 0 Refill(s), Pharmacy: [facility] #[id number] Start Date: 06/20/22 Stop Date: 07/04/22 Status: Ordered NovoLOG See Instructions, via pump, 0 Refill(s) Start Date: 05/09/22 Status: Ordered spironolactone 100 mg oral tablet 180 EA, TAKE ONE TABLET BY MOUTH TWICE A DAY, 0 Refill(s) Start Date: 05/09/22 Status: Ordered Problem List Condition Confirmation Course Effective Dates Status Health St at[facility] Informant Diabetes type I Confirmed Active Vital Signs Most recent to oldest [Reference Range]: 1 Temperature Temporal Artery [36-38 Deg C ] 36.6 Deg C (11/24/22 8:28 AM) Peripheral Pulse Rate [60-100 bpm] 67 bp m (11/24/22 8:28 AM) Respiratory Rate [12-24 br/min] 16 br/mi n (11/24/22 8:28 AM) Blood Pressure [90-140/60-90 mmHg] 122/8 1mmHg (11/24/22 8:28 AM) Weight Dosing 70.31 kg (11/24/22 8:41 AM) Weight Estimated 70.31 kg (11/24/22 8:28 AM) Height/Length Dosing 157.640 cm (11/24/22 8:41 AM) Height/Length Estimated 157.640 cm (11/24/22 8:28 AM) Social History Social History Type Response Smoking Status Smoking tobacco use: Former tobacco user;Never entered on: 05/09/22 Sex Female Hospital Discharge Instructions Patient Education 11/24/2022 08:38:03 Foot Pain Foot Pain Many things can cause foot pain. Some common causes are: ??? An injury. ??? A sprain. ??? Arthritis. ??? Blisters. ??? Bunions. Follow these instructions at home: Managing pain, stiffness, and swelling If directed, put ice on the painful area: ??? Put ice in a plastic bag. ??? Place a towel between your skin and the bag. ??? Leave the ice on for 20 minutes, 2???3 times a day. Activity ??? Do not stand or walk for long periods. ??? Return to your normal activities as told by your health care provider. Ask your health care provider what activities are safe for you. ??? Do stretches to relieve foot pain and stiffness as told by your health care provider. ??? Do not lift anything that is heavier than 10 lb (4.5 kg), or the limit that you are told, untilyour health care provider says that it is safe. Lifting a lot of weight can put added pressure on your feet. Lifestyle ??? Wear comfortable, supportive shoes that fit you well. Do not wear high heels. ??? Keep your feet clean and dry. General instructions ??? Take esqz-nkm-nfdlhtp and prescription medicines only as told by your health care provider. ??? Rub your foot gently. ??? Pay attention to any changes in your symptoms. ??? Keep all follow-up visits as told by your health care provider. This is important. Contact a health care provider if: ??? Your pain does not get better after a few days of self-care. ??? Your pain gets worse. ??? You cannot stand on your foot. Get help right away if: ??? Your foot is numb or tingling. ??? Your foot or toes are swollen. ??? Your foot or toes turn white or blue. ??? You have warmth and redness along your foot. Summary ??? Common causes of foot pain are injury, sprain, arthritis, blisters, or bunions. ??? Ice, medicines, and comfortable shoes may help foot pain. ??? Contact your health care provider if your pain does not get better after a few days of self-care. This information is not intended to replace advice given to you by your health care provider. Make sure you discuss any questions you have with your health care provider. Document Revised: 10/23/2021 Document Reviewed: 10/23/2021 Elsevier Patient Education ?? 2021 [employer]. Follow Up Care 11/24/2022 08:28:36 With:Marcellus Plascencia DO Address: [facility] [address] [address]- When:1 week Comments:As needed for persistent symptoms Emergency department Discharge instructions * Dyllan Potter MD: PERFORM Event Display: ED Discharge Information Authored Date: [id number] FRANCES CAO :1985 Age:37 years Sex:Female Visit Date:11/24/2022 Primary Care Physician: Marcellus Plascencia DO Discharge Instructions We would like to thank you for allowing us to assist you with your healthcare needs. The following includes patient education materials and information regarding your injury/illness. Diagnosis from Today's Visit Pain of right great toe Discharge Vitals Temperature??(Temporal Artery) 97.9 ??F (36.6 ??C) Heart Rate??(Peripheral) 67 Respiratory Rate?? 16 Blood Pressure?? 122/81?? Height?? 62.06 in (157.640 cm) Weight??(Estimated) 155.03 lb (70.31 kg) Allergies acetaminophen-tramadol??(Fit) What to Do Next Instructions from Your Care Team Thankfully your x-rays today did not show any fracture or??dislocation of the toe. ??We would recommend using the postoperative shoe??to help support the area??while it is healing. ??Anti-inflammatory medication such as ibuprofen or naproxen in addition to ice (20 minutes on and then 20 minutes off)??will help with swelling and inflammation. ??Please follow-up with your regular doctor in the nextweek or so if you are still having persistent symptoms and return to the emergency department if you have any new or concerning symptoms. You Need to Schedule the Following Appointments Follow Up with??Marcellus Plascencia DO When:??Within 1 week Why: As needed for persistent symptoms Where: [facility] [address] [address]- You were treated today on an emergency basis; it may be martinez to contact your primary care provider to notify them of your visit today. You may have been referred to your regular doctor or a specialist, please follow up as instructed. If your condition worsens or you can't get in to see the doctor, contact the Emergency Department. Medications What How Much When Why Instructions Next Dose Unchanged cyclobenzaprine (cyclobenzaprine 5 mg oral tablet) 1.5 tab Oral (given by mouth) 2 times a day Duration: 10 Days take 1.5 tabs BID. ??This replaces the 7.5 mg dosage that not avaialabe and not covered if available. ?? Unchanged gabapentin (gabapentin 300 mg oral capsule) 270 EA, TAKE ONE CAPSULE BY MOUTH THREE TIMES A DAY ?? Unchanged ibuprofen (ibuprofen 800 mg oral tablet) 1 tab Oral (given by mouth) Every 8 hours Quadriceps muscle strain Unchanged insulin aspart (NovoLOG) See instructions via pump ?? Unchanged magnesium oxide (magnesium oxide 250 mg oral tablet) 2 tab Oral (given by mouth) Every day Hypomagnesemia Duration: 14 Days Unchanged spironolactone (spironolactone 100 mg oral tablet) 180 EA, TAKE ONE TABLET BY MOUTH TWICE A DAY ?? Education Materials Foot Pain Many things can cause foot pain. Some common causes are: ? An injury. ? A sprain. ? Arthritis. ? Blisters. ? Bunions. Follow these instructions at home: Managing pain, stiffness, and swelling If directed, put ice on the painful area: ? Put ice in a plastic bag. ? Place a towel between your skin and the bag. ? Leave the ice on for 20 minutes, 2???3 times a day. Activity ? Do not stand or walk for long periods. ? Return to your normal activities as told by your health care provider. Ask your health care provider what activities are safe for you. ? Do stretches to relieve foot pain and stiffness as told by your health care provider. ? Do not lift anything that is heavier than 10 lb (4.5 kg), or the limit that you are told, until your health care provider says that it is safe. Lifting a lot of weight can put added pressure on your feet. Lifestyle ? Wear comfortable, supportive shoes that fit you well. Do not wear high heels. ? Keep your feet clean and dry. General instructions ? Take hnht-sdw-nbrzjye and prescription medicines only as told by your health care provider. ? Rub your foot gently. ? Pay attention to any changes in your symptoms. ? Keep all follow-up visits as told by your health care provider. This is important. Contact a health care provider if: ? Your pain does not get better after a few days of self-care. ? Your pain gets worse. ? You cannot stand on your foot. Get help right away if: ? Your foot is numb or tingling. ? Your foot or toes are swollen. ? Your foot or toes turn white or blue. ? You have warmth and redness along your foot. Summary ? Common causes of foot pain are injury, sprain, arthritis, blisters, or bunions. ? Ice, medicines, and comfortable shoes may help foot pain. ? Contact your health care provider if your pain does not get better after a few days of self-care. This information is not intended to replace advice given to you by your health care provider. Make sure you discuss any questions you have with your health care provider. Document Revised: 10/23/2021 Document Reviewed: 10/23/2021 Elsevier Patient Education ?? 2021 [employer] Tests Performed Medications and Immunizations Administered Given ibuprofen, 600 mg, Oral Patient/Appeals Court Associate Justice Signature Patient Name:FRANCES CAO I have received this information and my questions have been answered. Patient/Appeals Court Associate Justice Name: Patient/Appeals Court Associate Justice Signature: Relationship to Patient: Witness Name/Signature: Date: Electronically Signed on: 11/24/2022 09:39 EDTSigned by:IAGigi Emergency department Note * Darya Galicia M: PERFORM Event Display: ED Notes Authored Date: Patient Care team information Care Team Personnel Name: Marcellus Plascencia DO Position: Physician Member Role: Primary Care Physician Address: Address: [place] [facility] [id number] [place] [address] Name: Melissa Felix Position: Nurse Member Role: ED Nurse Name: Dyllan Potter MD Position: Physician Member Role: Admitting Physician Address: Address: [address] [place] [address] [place] [address] [place] Care Team Related Persons Name: AKHIL CAO Address: [place] [id number]
--- OUTSIDE RECORDS SUMMARY | 2023-01-29 10:02 | XMS_ITS | Continuity of Care Document ---
Author Name Unknown Organization [facility] Address [address] [place] [address] Care Team Providers Care Pet Care Associate Name Role Phone Marcellus Plascencia Primary Care Physician [phone] Encounter [facility] Date(s): 05/30/22 - 05/30/22 [facility] [address] [place] [address] Discharge Disposition: Home or Self Care Attending Physician: Isabel Jena Baptiste Admitting Physician: Isabel Jean Baptiste Allergies, Adverse Reactions, Alerts Substance Reaction Severity Status acetaminophen-tramadol Fit Unknown Activ e Assessment and Plan Diagnostic Tests Pending * Urine Culture 05/30/22 Immunizations Given and Recorded Vaccine Date Status [...] Recorded tetanus/diphth/pertuss (Tdap) adult/adol 04/24/14 Recorded Novel Uszxjiqsy-[id number], all formulation 05/18/09 Recorded rubella virus vaccine 08/03/00 Recorded Medications cyclobenzaprine 5 mg oral tablet 7.5 mg = 1.5 tab, Oral, BID, take 1.5 tabs BID. This replaces the 7.5 mg dosage that not avaialabe and not covered if available., # 30 tab, 0 Refill(s), Pharmacy: [facility] #[id number] Start Date: 05/09/22 Stop Date: 05/19/22 Status: Ordered gabapentin 300 mg oral capsule 270 EA, TAKE ONE CAPSULE BY MOUTH THREE TIMES A DAY, 0 Refill(s) Start Date: 05/09/22 Status: Ordered ibuprofen 800 mg oral tablet 800 mg = 1 tab, Oral, every 8 hr, # 30 tab, 1 Refill(s), Pharmacy: [facility] #[id number] Start Date: 05/09/22 Status: Ordered NovoLOG See Instructions, via pump, 0 Refill(s) Start Date: 05/09/22 Status: Ordered spironolactone 100 mg oral tablet 180 EA, TAKE ONE TABLET BY MOUTH TWICE A DAY, 0 Refill(s) Start Date: 05/09/22 Status: Ordered Problem List Condition Confirmation Course Effective Dates Status Health St atus Informant Diabetes type I Confirmed Active Results Laboratory List Name Date Urinalysis Microscopic 05/30/22 Urinalysis with Microscopic 05/30/22 Most recent to oldest [Reference Range]: 1 UA Color Yellow (05/30/22 9:03 PM) UA WBC [0-3] 25-50 *ABN* (05/30/22 9:03 PM) UA Urobilinogen Normal (05/30/22 9:03 PM) UA Bili [Negative] Negative (05/30/22 9:03 PM) UA Ketones Trace *ABN* (05/30/22 9:03 PM) UA RBC [0-2] 0-2 (05/30/22 9:03 PM) UA Leuk Est 1+ *ABN* (05/30/22 9:03 PM) UA Nitrite Positive *ABN* (05/30/22 9:03 PM) UA Glucose [Negative] 2+ *ABN* (05/30/22 9:03 PM) UA Bacteria Many /HPF *ABN* (05/30/22 9:03 PM) UA Protein Negative (05/30/22 9:03 PM) UA Blood Trace *ABN* (05/30/22 9:03 PM) UA Mucous None Seen /HPF (05/30/22 9:03 PM) UA Spec Grav 1.015 *NA* (05/30/22 9:03 PM) UA Squam Epithelial [None Seen] None See n (05/30/22 9:03 PM) UA pH 6.0 *NA* (05/30/22 9:03 PM) UA Appear Hazy *ABN* (05/30/22 9:03 PM) UA Culture Ind?. Not Applicable (05/30/22 9:03 PM) Social History Social History Type Response Smoking Status Smoking tobacco use: Former tobacco user;Never entered on: 05/09/22 Sex Female Patient Care team information Personnel Name: Marcellus Plascencia DO Address: Address: [facility] [address] [address] [place]
[2023-01-29 10:16] LABS: Bilirubin Small (Negative); Blood Moderate (Negative); Clarity Sl Cloudy (Clear); Glucose 100 mg/dL (Negative); Ketones >=160 mg/dL (Negative); Leukocyte Esterase Large (Negative); Nitrite Negative (Negative); Specific Gravity 1.015 (1.005-1.025); Urobilinogen 0.2 mg/dL (Up to 0.2); pH 5.5 (5-8)
[2023-01-29 10:32] LABS: Bacteria Rare HPF (Negative); C & S Indicated? No/Sq. Contamination; Crystals Negative HPF (Negative); Epithelial Cells Few HPF (Negative); Mucus Negative (Negative); Other Cells Rare Renal (Negative); RBC 20-50 HPF (0-2); WBC >50 HPF (0-5)
--- NOTE | 2023-01-29 10:45 | ED.GENADUL_ITS ---
Discharge Plan Disposition Patient Disposition: Home Condition: Improving Discharge Details Clinical Impression: Pyelonephritis Primary Care Provider: Marcellus Plascencia ED Provider: Hernando Lane Home Meds and New Rx's Prescriptions: New cefpodoxime 200 mg tablet 200 mg PO BID 10 Days Qty: 20 0RF Rx Instructions: must administer with a meal/food No Action gabapentin 300 mg Tablet 300 mg PO TID insulin glargine 100 unit/mL Cartridge 0 unit SUBCUT DAILY (DME) Dexcom [employer] Mechanic Misc MISCELLANEOUS tretinoin 0.025 % Cream 1 applic TOPICAL DAILY insulin aspart U-100 [Novolog FlexPen U-100 Insulin] 100 unit/mL (3 mL) Insulin Pen 1 - 20 unit subcut 0800,1200,1700 Qty: 0 0RF Rx Instructions: 1 unit: 10 grams CHO today, then go back to your usual coverage of 1 unit: 16 grams CHO insulin aspart U-100 [Novolog FlexPen U-100 Insulin] 100 unit/mL (3 mL) Insulin Pen See Rx Instructions .ROUTE .COMPLEX Qty: 0 0RF Rx Instructions: 1 unit: 50 pts >150 today, then 1 unit: 60 pts starting tomorrow Lactobacillus acidophilus 1 billion cell capsule 1,000 mmu cells PO DAILY Qty: 30 0RF ibuprofen 200 mg tablet 400 - 600 mg PO Q6H PRNQty: 30 0RF spironolactone 100 mg Tablet 100 mg PO BID Qty: 0 0RF Rx Instructions: Resume in 2 days insulin aspart U-100 [Novolog U-100 Insulin aspart] 100 unit/mL Solution 50 - 60 unit subcut DAILY Qty: 0 0RF Rx Instructions: Resume insulin pump tomorrow morning! 50 to 60 unit sq via i.TVs 630G pump Discharge Instructions Instructions: Kidney Infection (ED) Additional Instructions: Please take medication as prescribed. Return to the emergency department for any worsening symptoms or if symptoms or not improving. Follow-up closely with your primary care physician Medical Decision Making 37-year-old female history of diabetes, UTI, pyelonephritis, presents with nausea, urinary frequency, flank pain over the past day associated with hyperglycemia. Clinical suspicion high for pyelonephritis must also consider DKA lower suspicion for kidney stone, lower suspicion for gastroenteritis colitis appendicitis or cholecystitis. Will obtain basic labs, urinalysis, fluids antiemetics, analgesia antibiotics to cover urinary pathogens. Close reassessment of symptoms 14: 02 patient resting comfortably feeling much better fluids and medication. Nausea is improved no vomiting. Blood sugar in the mid to high 100s improved from earlier this morning. Heart rate improving. Color and overall clinical picture greatly improved. Likely pyelonephritis responding to medical treatment . Will be transition to oral antibiotics. Given home care instructions and strict return precautions HPI General Date/Time Provider Initiated Documentation: 01/29/23 09:46 . HPI Narrative: 37-year-old female history of diabetes, prior pyelonephritis, presents with fever chills back pain nausea and urinary frequency as well as high blood sugars in the 300s at home over the past several days. Related Data Home Medications Medication Instructions Recorded Confirmed blood-glucose meter,continuous 07/06/21 08/21/22 ([employer] Mechanic) gabapentin 300 mg tablet 300 mg PO TID 07/06/21 08/21/22 insulin glargine 100 unit/mL 0 unit subcut DAILY 07/06/21 08/21/22 subcutaneous cartridge tretinoin 0.025 % topical cream 1 applic topical DAILY 07/06/21 08/21/22 Lactobacillus acidophilus 1 1,000 mmu cells PO DAILY #30 caps 07/09/21 08/21/22 billion cell capsule ibuprofen 200 mg tablet 400 - 600 mg PO Q6H PRN #30 tabs 07/09/21 08/21/22 insulin aspart U-100 100 unit/mL 1 - 20 unit (0.01 - 0.2 mL) subcut 07/09/21 08/21/22 (3 mL) subcutaneous pen (Novolog 0800,1200,1700 #0 mL FlexPen U-100 Insulin aspart) insulin aspart U-100 100 unit/mL See Rx Instructions .Route 07/09/21 08/21/22 (3 mL) subcutaneous pen (Novolog .COMPLEX #0 mL FlexPen U-100 Insulin aspart) insulin aspart U-100 100 unit/mL 50 - 60 unit (0.5 - 0.6 mL) subcut 07/09/21 08/21/22 subcutaneous solution (Novolog DAILY #0 mL U-100 Insulin aspart) spironolactone 100 mg tablet 100 mg PO BID #0 tabs 07/09/21 08/21/22 cefpodoxime 200 mg tablet 200 mg PO BID 10 days #20 tabs 01/29/23 Previous Rx's Medication Instructions Recorded Lactobacillus acidophilus 1 1,000 mmu cells PO DAILY #30 caps 07/09/21 billion cell capsule ibuprofen 200 mg tablet 400 - 600 mg PO Q6H PRN #30 tabs 07/09/21 insulin aspart U-100 100 unit/mL 1 - 20 unit (0.01 - 0.2 mL) subcut 07/09/21 (3 mL) subcutaneous pen (Novolog 0800,1200,1700 #0 mL FlexPen U-100 Insulin aspart) insulin aspart U-100 100 unit/mL See Rx Instructions .Route 07/09/21 (3 mL) subcutaneous pen (Novolog .COMPLEX #0 mL FlexPen U-100 Insulin aspart) insulin aspart U-100 100 unit/mL 50 - 60 unit (0.5 - 0.6 mL) subcut 07/09/21 subcutaneous solution (Novolog DAILY #0 mL U-100 Insulin aspart) spironolactone 100 mg tablet 100 mg PO BID #0 tabs 07/09/21 cefpodoxime 200 mg tablet 200 mg PO BID 10 days #20 tabs 01/29/23 Allergies Allergy/AdvReac Type Severity Reaction Status Date / Time tramadol [From Ultracet] AdvReac seizures Verified 08/21/22 11:56 General Stated Complaint: Urinary MALLY: 3 Review of Systems Narrative: Review of Systems Constitutional:, Chills Eyes: negative ENT: negative Cardiovascular: negative Respiratory: negative Gastrointestinal: Nausea : Urinary frequency, flank pain Musculoskeletal: negative Skin: negative Neurologic: negative Psych: negative PFSH All Active Problems (Updated 01/29/23 @ 14:[address] MD) Escherichia coli sepsis (Acute) Hypophosphatemia (Acute) Hypomagnesemia (Acute) Discharge planning issues (Acute) DVT prophylaxis (Acute) Bacteremia (Acute) Sepsis (Acute) Pyelonephritis (Acute) Type 1 diabetes mellitus (Acute) Medical History (Updated 01/29/23 @ 14:[address] MD) Acne Anxiety Dehiscence of section wound, (~2009) Depression Hirsutism Irregular menses Lateral epicondylitis Retinopathy Surgical History (Updated 07/06/21 @ 23:16 by Arsh Jackson MD) Previous section x3 Social History (Updated 07/06/21 @ 23:17 by Arsh Jackson MD) Smoking/Tobacco Use Status: Former Tobacco Use tobacco type: cigarettes Quit Date: 08/03/07 Pack-years: 14 Smoking risk assessment performed?: Yes Alcohol Intake: current Alcohol Intake frequency: 0-2 drinks per day Alcohol type: beer Drug use: Daily Substance use type: marijuana Household members: spouse and children Number of Children: 3 Do you feel safe at home: Yes Do you feel safe in your relationship?: Yes Exam Narrative Exam Narrative: Physical Examination General: alert, awake, cooperative, appears uncomfortable HEENT: normocephalic, atraumatic; PERRL, EOM intact, conjunctiva normal; no nasal discharge; drying of oral mucosa Neck: supple, trachea midline; full ROM Chest: normal to inspection Respiratory: normal respiratory effort, speaking in full sentences, clear to auscultation, no wheezing, rales or rhonchi Cardiac: Tachycardia, regular rhythm, S1S2 intact, no murmurs rubs or gallops GI: abdomen soft, non-tender, non-distended; no palpable mass or hepatosplenomegaly Skin: no lesions, rashes or trauma appreciated Neuro: AAOx3, normal speech, moving all extremities Psych: Appropriate mood and affect Course Vital Signs Vital signs: Vital Signs Temperature 37.2 C 01/29/23 09:39 Pulse 104 H 01/29/23 09:39 Respiratory Rate 20 01/29/23 09:39 Blood Pressure 118/84 01/29/23 09:39 Pulse Oximetry 100 01/29/23 09:39 Temperature 37.2 C 01/29/23 09:39 Temperature Source Temporal Artery Scan 01/29/23 09:39 Pulse 104 H 01/29/23 09:39 Respiratory Rate 20 01/29/23 09:39 Blood Pressure 118/84 01/29/23 09:39 Blood Pressure Position Sitting 01/29/23 09:39 Pulse Oximetry 100 01/29/23 09:39 Oxygen Delivery Method Room Air 01/29/23 09:39 Oxygen Flow Rate 0 01/29/23 09:39 Lab/Test Results Lab/Test Results: Laboratory Tests Range/Units 01/29/23 09:45 Urine Color (Yellow) Yellow Urine Clarity (Clear) Sl Cloudy Urine pH (5-8) 5.5 Ur Specific Diamond (1.005-1.025) 1.015 Urine Protein (Negative) mg/dL 100 H Urine Ketones (Negative) mg/dL >=160 H Urine Blood (Negative) Moderate H Urine Nitrite (Negative) Negative Urine Bilirubin (Negative) Small H Urine Urobilinogen (Up to 0.2) mg/dL 0.2 Ur Leukocyte Esterase (Negative) Large H Urine RBC (0-2) HPF 20-50 H Urine WBC (0-5) HPF >50 H Ur Epithelial Cells (Negative) HPF Few Urine Crystals (Negative) HPF Negative Urine Bacteria (Negative) HPF Rare Urine Mucus (Negative) Negative Urine Other (Negative) Rare Renal Ur Culture Indicated? No/Sq. Contamination Urine Glucose (Negative) mg/dL 100 H POC- Test(urine) Negative
[2023-01-29 10:48] LABS: BE (Venous) 1 mmol/L (-2-3); HCO3 (Venous) 24 mmol/L (23-28); O2 Sat (Venous) 44 %; TCO2 (Venous) 22 mmol/L (24-29); pCO2 (Venous) 34 mmHg (41-51); pH (Venous) 7.46 (7.31-7.41); pO2 (Venous) 21 mmHg
[2023-01-29 10:49] LABS: Abs Immature Grans 0.03 10^3/uL (0.0-0.06); Absolute Basophil Count 0.05 10^3/uL (0.0-0.2); Absolute Eosinophil Count 0.01 10^3/uL (0.0-0.7); Absolute Lymphocyte Count 0.81 10^3/uL (1.2-3.4); Absolute Monocyte Count 0.62 10^3/uL (0.1-0.8); Absolute Neutrophil Count 9.27 10^3/uL (1.2-6.7); Basophils % 0.5; Eosinophils % 0.1; HCT 42.6 % (36.0-46.0); HGB 14.4 g/dL (11.2-15.7); Immature Grans % 0.3; Lymphocytes % 7.5; MCH 30.6 pg (27.0-33.0); MCHC 33.8 % (32.0-36.0); MCV 90 fL (80-95); MPV 9.9 fL (8.0-11.0); Monocytes % 5.7; Neutrophils % 85.9; Platelet Count 212 10^3/uL (130-400); RBC 4.71 10^6/uL (3.93-5.22); RDW 12.3 % (11.7-14.6); RDW-SD 40.4 fL; WBC 10.79 10^3/uL (4.4-10.8)
[2023-01-29] MEDS: Ondansetron 4 MG/2 ML VIAL IVP (10:55)
[2023-01-29] MEDS: Ketorolac 15 MG/ML VIAL IVP (10:55)
[2023-01-29] MEDS: Normal Saline 1,000 ML 1000 ML IV (10:55)
[2023-01-29] MEDS: cefTRIAXone 1 GM/50 ML BAG IVPB (11:09)
[2023-01-29 11:10] LABS: ALT 17 U/L (14-59); AST 10 U/L (15-37); Albumin 3.9 g/dL (3.4-5.0); Alkaline Phosphatase 82 U/L (46-116); Anion Gap 12.4 mmol/L (3-11); BUN 11 mg/dL (7-18); Bilirubin, Total 0.8 mg/dL (0.2-1.0); CO2 24.6 mmol/L (21.0-32.0); Calcium 9.3 mg/dL (8.5-10.1); Chloride 96 mmol/L (98-107); Estimated GFR 74.41 (mL/min/1.73m2); Glucose 180 mg/dL (74-106); Potassium 3.8 mmol/L (3.5-5.1); Sodium 133 mmol/L (136-145); Total Protein 8.1 g/dL (6.4-8.2)
--- NOTE | 2023-01-29 11:43 | NUR.NOTE ---
Nursing Note: Pt personal BGL monitor states its 207
--- NOTE | 2023-01-30 09:20 | NUR.NOTE ---
Nursing Note: Patient questioning where her prescription is. [facility] did not recieve transmission
== END 2023-01-29 14:44 | disposition home or self-care (01) ==
PROVIDERS: Emergency Provider Emergency Medicine; PCP Neuromusculoskeletal Medicine & OMM
DX: N10 Acute pyelonephritis (principal); E11.9 Type 2 diabetes mellitus without complications; R11.0 Nausea; R35.0 Frequency of micturition
CPT/HCPCS: 36415; 36416; 80053; 81025; 82805; 82962; 96365; 96375; 99284; 81003; 81015; 85025; J0696; J1885; J2405